=== PATIENT | female | born 1935 | race Caucasian/White ===

== ENCOUNTER 2016-05-03 03:42 | Emergency (ER) | payer OTHER ==
[~2016-05-03] VITALS: Ht 165.1 cm; Wt 82.7 kg
[~2016-05-03 03:42] MED LIST: CIPR500T4 PO; COLY4000S PO; DOXY100T PO; ERYT250T13 OR
[2016-05-03 03:44] VITALS: BP 201/109; PULSE 77; RESP 20; TEMP 97.9; O2SAT 96
--- NOTE | 2016-05-03 03:54 | PD ---
HPI Chief Complaint: Pain: Acute or Chronic Time Seen by Provider: 03:44 Travel History International Travel<30 days: No Contact w/Intl Traveler<30days: No Traveled to known affect area: No History of Present Illness HPI The patient is 80 years old and arrives by EMS. She has a history of coronary artery disease with a CABG and triple bypass. She has for the past day or so developed pain in the region of the right leg is quite severe, 10 over 10 according to the patient. History is provided by the son primarily however offering story of leg pain for about 2 days or so. There has been no traumatic injury. Onset was gradual. There is no apparent exacerbating or mitigating factor. PFSH Past Medical History Cardiovascular Problems: Yes (TRIPLE BYPASS ) Coronary Artery Disease: Yes Past Surgical History Appendectomy: Yes Cardiac Surgery: Yes (CABG X 3, CARDIAC CATH) Hysterectomy: Yes Tonsillectomy: Yes Other Surgery: Yes (CATARACT SX, THYROID SX, FIBROID CYST RT BREAST) Social History Alcohol Use: No Tobacco Use: No Substance Use: No Allergies-Medications (Allergen,Severity, Reaction): Coded Allergies: Claritin-D (Verified Allergy, Severe, 12/24/15) Macrobid (Verified Allergy, Severe, 12/24/15) Penicillin (Verified Allergy, Severe, 12/24/15) Sulfa (Verified Allergy, Severe, 12/24/15) Talwin (Verified Allergy, Severe, 12/24/15) Tequin (Verified Allergy, Severe, 12/24/15) Xanax (Verified Allergy, Severe, 12/24/15) Zoloft (Verified Allergy, Severe, 12/24/15) Motrin (Verified Allergy, Unknown, H/A, 12/24/15) Uncoded Allergies: BACTRIM (Allergy, Severe, 08/15/11) FISH (Allergy, Severe, 08/15/11) TOLECTIN (Allergy, Unknown, 12/24/15) Reported Meds & Prescriptions Reported Meds & Active Scripts Active Lortab (Hydrocodone-Acetaminophen) 5-325 Mg Tab 1 Tab PO Q8HR PRN Review of Systems Except as stated in HPI: all other systems reviewed are Neg Physical Exam Narrative GENERAL: 80 yo F, WNWD, mild distress SKIN: Warm and dry. HEAD: Atraumatic. Normocephalic. EYES: Pupils equal and round. No scleral icterus. No injection or drainage. ENT: No nasal bleeding or discharge. Mucous membranes pink and moist. NECK: Trachea midline. No JVD. CARDIOVASCULAR: Regular rate and rhythm. RESPIRATORY: No accessory muscle use. Clear to auscultation. Breath sounds equal bilaterally. GASTROINTESTINAL: The abdomen is soft and nontender. There is no mass/hernia that is appreciable on exam. No suprapubic tenderness. MUSCULOSKELETAL: R thigh appears normal and is without tenderness. no focal spinal tenderness. no tenderness overlying iliac crest. NEUROLOGICAL: Awake and alert. No obvious cranial nerve deficits. Motor grossly within normal limits. Five out of 5 muscle strength in the arms and legs. Normal speech. PSYCHIATRIC: Appropriate mood and affect; insight and judgment normal. Data Data Last Documented VS Vital Signs Date Time Temp Pulse Resp B/P Pulse Ox O2 Delivery O2 Flow Rate FiO2 05/03/16 04:51 94 Nasal Cannula 2 05/03/16 03:44 97.9 77 20 201/109 Orders Complete Blood Count With Diff (05/03/16 03:54) Urinalysis - C+S If Indicated (05/03/16 03:54) Femur (Ap & Lat/2vws) (05/03/16 03:54) Hip, Uni(Ap&Lat) W Ap Pelvis (05/03/16 03:54) Iv Access Insert/Monitor (05/03/16 03:54) Oximetry (05/03/16 03:54) Ecg Monitoring (05/03/16 03:54) Ondansetron Inj (Zofran Inj) (05/03/16 04:00) Sodium Chloride 0.9% Flush (Ns Flush) (05/03/16 04:00) Hydromorphone Pf Inj (Dilaudid Pf Inj) (05/03/16 04:00) Basic Metabolic Panel (Bmp) (05/03/16 03:54) Cath For Specimen (05/03/16 04:37) Urine Culture (05/03/16 06:15) Labs Laboratory Tests Test 05/03/16 05/03/16 03:55 06:15 White Blood Count 5.9 TH/MM3 Red Blood Count 4.65 MIL/MM3 Hemoglobin 14.2 GM/DL Hematocrit 42.2 % Mean Corpuscular Volume 90.7 FL Mean Corpuscular Hemoglobin 30.5 PG Mean Corpuscular Hemoglobin 33.7 % Concent Red Cell Distribution Width 14.4 % Platelet Count 163 TH/MM3 Mean Platelet Volume 8.7 FL Neutrophils (%) (Auto) 73.5 % Lymphocytes (%) (Auto) 16.1 % Monocytes (%) (Auto) 6.7 % Eosinophils (%) (Auto) 2.8 % Basophils (%) (Auto) 0.9 % Neutrophils # (Auto) 4.3 TH/MM3 Lymphocytes # (Auto) 1.0 TH/MM3 Monocytes # (Auto) 0.4 TH/MM3 Eosinophils # (Auto) 0.2 TH/MM3 Basophils # (Auto) 0.1 TH/MM3 CBC Comment DIFF FINAL Differential Comment Sodium Level 137 MEQ/L Potassium Level 3.8 MEQ/L Chloride Level 102 MEQ/L Carbon Dioxide Level 25.6 MEQ/L Anion Gap 9 MEQ/L Blood Urea Nitrogen 11 MG/DL Creatinine 0.84 MG/DL Estimat Glomerular Filtration 65 ML/MIN Rate Random Glucose 114 MG/DL Calcium Level 8.9 MG/DL Urine Color YELLOW Urine Turbidity HAZY Urine pH 7.0 Urine Specific [place] 1.021 Urine Protein TRACE mg/dL Urine Glucose (UA) NEG mg/dL Urine Ketones 10 mg/dL Urine Occult Blood NEG Urine Nitrite POS Urine Bilirubin NEG Urine Urobilinogen LESS THAN 2.0 MG/DL Urine Leukocyte Esterase NEG Urine RBC 2 /hpf Urine WBC 5 /hpf Urine Squamous Epithelial 12 /hpf Cells Urine Amorphous Sediment RARE Urine Bacteria MANY /hpf Urine Hyaline Casts 1 /lpf Urine Mucus FEW /lpf Microscopic Urinalysis Comment CATH-CULTURE IND [facility] Medical Decision Making Medical Screen Exam Complete: Yes Emergency Medical Condition: Yes Medical Record Reviewed: Yes Differential Diagnosis Constipation, Gastritis, Acute Cholecystitis, Biliary Colic, Pancreatitis, KUMARI , Hepatitis, Bowel Obstruction, Cystitis, Mesenteric Ischemia, AAA, Appendicitis , Renal Stone/Hydronephrosis, GERD, perforated viscous Narrative Course CBC & BMP Diagram 05/03/16 03:55 UA: UTI present The patient is resting comfortably and feels better, is alert and in no distress. The patients results and examination findings were discussed. The repeat examination is unremarkable and benign. The history, exam, diagnostic testing, and current condition do not suggest any significant pathology to warrant further testing, continued ED treatment, admission, or surgical evaluation at this point. The vital signs have been stable. The patient does not have uncontrollable pain, intractable vomiting, or other significant symptoms. The patient's condition is stable and appropriate for discharge. The patient will pursue further outpatient evaluation with a primary care physician or other designated or consulting physician as indicated in the discharge instructions. The patient expressed understanding and was agreeable with this plan. Diagnosis Primary Impression: Right hip pain Additional Impression: Cystitis Referrals: Shannan Tucker MDo,Esperanza HUTCHINSON Additional Instructions: You have a choice when it comes to health care, and we are glad that you chose [facility]. Hopefully, we have met your expectations on today's visit. You are welcome to return to [facility] at any time, as we are committed to meeting the health care needs of our community. Med/Other Pt SpecificInfo: Prescription(s) given Scripts Cefuroxime (Ceftin)500 Mg Klx179 Mg PO BID 5 Days Ref 0 Prov:Jesse Butler MD 05/03/16 Hydrocodone-Acetaminophen (Lortab)5-325 Mg Tab1 Tab PO Q8HR PRN (PAIN SCALE 6 TO 10) #20 TAB Ref 0 Prov:Jesse Butler MD 05/03/16 Disposition: 01 DISCHARGE HOME Condition: Stable Jesse Butler MD May 03, 2016 03:54
[2016-05-03] MEDS ORDERED: HYDROmorphone HCL PF 1 MG/ML VIAL IVS ONE (04:00)
[2016-05-03] MEDS ORDERED: ONDANSETRON HCL 4 MG/2 ML VIAL IVP ONE (04:00)
[2016-05-03 04:12] LABS: AUTOMATED NEUTROPHIL # 4.3 TH/MM3 (1.8-7.7); BASOPHIL # 0.1 TH/MM3 (0-0.2); BASOPHIL % 0.9 % (0.0-2.0); EOSINOPHIL # 0.2 TH/MM3 (0-0.4); EOSINOPHIL % 2.8 % (0.0-4.0); HEMATOCRIT 42.2 % (35.0-46.0); HEMO FLAGS DIFF FINAL; LYMPH % 16.1 % (9.0-44.0); MEAN CELL VOLUME 90.7 FL (80.0-100.0); MEAN CORPUSCULAR HEMOGLOBIN 30.5 PG (27.0-34.0); MEAN CORPUSCULAR HGB CONC 33.7 % (32.0-36.0); MONO % 6.7 % (0.0-8.0); NEUT % 73.5 % (16.0-70.0); PLATELET COUNT 163 TH/MM3 (150-450); RED BLOOD COUNT 4.65 MIL/MM3 (4.00-5.30); RED CELL DISTRIBUTION WIDTH 14.4 % (11.6-17.2); WHITE BLOOD COUNT 5.9 TH/MM3 (4.0-11.0)
[2016-05-03] MEDS: SODIUM CHLORIDE 0.9% FLUSH 5 ML FLUSH IVF PRN ×2 (04:21→09:19)
[2016-05-03 04:29] LABS: BICARBONATE 25.6 MEQ/L (21.0-32.0); POTASSIUM 3.8 MEQ/L (3.5-5.1)
[2016-05-03 04:51] VITALS: O2SAT 94
--- NOTE | 2016-05-03 05:06 | RADRPT ---
EXAM DATE/TIME: 05/03/2016 04:06 [facility] COMPARISON: No previous studies available for comparison. INDICATIONS : Right leg pain from unknown injury. MEDICAL HISTORY : None. SURGICAL HISTORY : CABG. ENCOUNTER: Initial ACUITY: 2 days PAIN SCORE: 8/10 LOCATION: Right femur FINDINGS: Two view examination of the right femur demonstrates no evidence of fracture or dislocation. Bony mi neralization is normal. The soft tissue structures are intact. There are mild degenerative changes o f the joint. CONCLUSION: No fracture or joint dislocation. Mild degenerative changes at the hip joint. Teddy Uriarte MD on May 03, 2016 at 5:04 Board Certified Radiologist. This report was verified electronically.
--- NOTE | 2016-05-03 05:07 | RADRPT ---
EXAM DATE/TIME: 05/03/2016 04:06 [facility] COMPARISON: No previous studies available for comparison. INDICATIONS : Right hip pain from unknown injury. MEDICAL HISTORY : None. SURGICAL HISTORY : CABG. ENCOUNTER: Initial ACUITY: 2 days PAIN SCORE: 8/10 LOCATION: Right hip FINDINGS: Examination of the right hip was performed with AP Pelvis. The primary and secondary trabecular obed shanice of the femoral neck is intact. The hip joint is of normal width without significant sclerosis or bony hypertrophy. There are mild degenerative changes of both hip joints. Multiple calcified phlebol iths are seen in the pelvis. The acetabulum is grossly intact. CONCLUSION: Unremarkable exam for patient's age. Teddy Uriarte MD on May 03, 2016 at 5:04 Board Certified Radiologist. This report was verified electronically.
[2016-05-03 07:00] VITALS: BP 145/69; PULSE 68; RESP 18; O2SAT 98
[2016-05-03] MEDS ORDERED: HYDR-3533 PO (07:03)
[2016-05-03 07:05] LABS: BACTERIA, URINE MANY /hpf; BLOOD, URINE NEG (NEG); GLUCOSE,URINE NEG (NEG); HYALINE CAST, URINE 1 /lpf (RARE); KETONE, URINE 10 mg/dL (NEG); MUCUS URINE FEW /lpf (OCC); SQUAMOUS EPITHELIAL CELL URINE 12 /hpf (0-5); URINE COLOR YELLOW (YELLW/STRAW)
[2016-05-03 07:08] LABS: COMMENT (UR) CATH-CULTURE IND; CULTURE IF INDICATED CATH CULTURE IND; NITRITE,URINE POS (NEG)
[2016-05-03] MEDS ORDERED: CEFT500T3 PO (07:14)
[2016-05-03] MEDS ORDERED: CEFUROXIME AXETIL 500 MG TAB PO ONE (07:30)
[2016-05-03 09:45] VITALS: BP 148/68; PULSE 56; RESP 18; O2SAT 95
== END 2016-05-03 10:13 | disposition home or self-care (01) ==
LOC: NEPE 03:42
DX: M25.551 Pain in right hip (principal); N30.90 Cystitis, unspecified without hematuria; B96.20 Unspecified Escherichia coli [E. coli] as the cause of diseases classified elsewhere; I25.10 Atherosclerotic heart disease of native coronary artery without angina pectoris; Z95.1 Presence of aortocoronary bypass graft
CPT/HCPCS: 73502; 73552; 80048; 81001; 85025; 87077; 87086; 87186; 96374; 96375; 99284; J1170; J2405

== ENCOUNTER 2016-05-05 21:29 | Observation (INO) | payer OTHER ==
[~2016-05-05] VITALS: Ht 165.1 cm; Wt 82.0 kg
[~2016-05-05 21:29] MED LIST changes: +CEFT500T3 PO; -CIPR500T4 PO; -COLY4000S PO; -DOXY100T PO; -ERYT250T13 OR; +HYDR-3533 PO
[2016-05-05 21:32] VITALS: BP 211/94; PULSE 74; RESP 22; O2SAT 92
[2016-05-05 21:44] VITALS: TEMP 98.1
[2016-05-05] MEDS ORDERED: MORPHINE SULFATE 4 MG/ML INJ IV PUSH ONE (22:45)
[2016-05-05] MEDS ORDERED: SODIUM CHLORID 0.9% 500 ML INJ 500 ML IV ONE (22:45)
--- NOTE | 2016-05-05 22:48 | PD ---
HPI Chief Complaint: Pain: Acute or Chronic Time Seen by Provider: 22:10 Travel History International Travel<30 days: No Contact w/Intl Traveler<30days: No Traveled to known affect area: No History of Present Illness HPI And 80-year-old woman who presents to the emergency department complaining of right hip and leg pain. States his symptoms been ongoing for about a week or so now. She was receiving the emergency department had x-rays that were negative, and UA to suggest some pyuria so she was treated with pain medicine and antibiotics. She states she's not improved. She is chronic swelling in the leg from her previous vein harvesting for CABG. She states she's had intermittent mild pains and hip but this is been progressively more severe. She walks with a walker at home. States the pain is excruciating she's not been able to walk. She had trouble constipation and obstipation in the past. She states that she had to strain to go to the bathroom today. History Past Medical History Narrative Medical CAD, history of CABG Tetanus Vaccination: > 5 Years Influenza Vaccination: No : 6 Para: 4 Social History Alcohol Use: No Tobacco Use: No Allergies-Medications (Allergen,Severity, Reaction): Coded Allergies: Claritin-D (Verified Allergy, Severe, 05/05/16) Macrobid (Verified Allergy, Severe, 05/05/16) Penicillin (Verified Allergy, Severe, 05/05/16) Sulfa (Verified Allergy, Severe, 05/05/16) Talwin (Verified Allergy, Severe, 05/05/16) Tequin (Verified Allergy, Severe, 05/05/16) Xanax (Verified Allergy, Severe, 05/05/16) Zoloft (Verified Allergy, Severe, 05/05/16) Motrin (Verified Allergy, Unknown, H/A, 05/05/16) Uncoded Allergies: BACTRIM (Allergy, Severe, 08/15/11) FISH (Allergy, Severe, 08/15/11) TOLECTIN (Allergy, Unknown, 12/24/15) Reported Meds & Prescriptions Reported Meds & Active Scripts Active Ceftin (Cefuroxime Axetil) 500 Mg Tab 500 Mg PO BID 5 Days Lortab (Hydrocodone-Acetaminophen) 5-325 Mg Tab 1 Tab PO Q8HR PRN Review of Systems Except as stated in HPI: all other systems reviewed are Neg Physical Exam Narrative GENERAL: [Obese 80-year-old woman, writhing in pain. SKIN: Warm and dry. HEAD: Atraumatic. Normocephalic. EYES: Pupils equal and round. No scleral icterus. No injection or drainage. ENT: No nasal bleeding or discharge. Mucous membranes pink and moist. NECK: Trachea midline. No JVD. CARDIOVASCULAR: Regular rate and rhythm. No murmur appreciated. RESPIRATORY: No accessory muscle use. Clear to auscultation. Breath sounds equal bilaterally. GASTROINTESTINAL: Abdomen is obese and soft. No significant tenderness. MUSCULOSKELETAL: No obvious deformities. No edema. Right leg is warm and erythematous. There is a lot of chronic skin changes and scaling. Pulses are difficult to palpate. Left leg has some mild edema but without the chronic skin changes compared to the right. NEUROLOGICAL: Awake and alert. No obvious cranial nerve deficits. Motor grossly within normal limits. Normal speech. Data Data Last Documented VS Vital Signs Date Time Temp Pulse Resp B/P Pulse Ox O2 Delivery O2 Flow Rate FiO2 05/05/16 23:07 70 20 167/76 93 Room Air 05/05/16 21:44 98.1 Orders Sodium Chlorid 0.9% 500 Ml Inj (Ns 500 M (05/05/16 22:45) Morphine Inj (Morphine Inj) (05/05/16 22:45) Complete Blood Count With Diff (05/05/16 22:33) Comprehensive Metabolic Panel (05/05/16 22:33) Iv Access Insert/Monitor (05/05/16 22:33) Us Leg Venous Doppler (05/05/16 ) Ct Hip W/O Contrast (05/06/16 ) Ct Abd/Pel W/O Iv Contrast (05/06/16 ) Morphine Inj (Morphine Inj) (05/06/16 01:45) Labs Laboratory Tests Test 05/05/16 23:08 White Blood Count 5.8 TH/MM3 Red Blood Count 4.63 MIL/MM3 Hemoglobin 14.3 GM/DL Hematocrit 41.9 % Mean Corpuscular Volume 90.5 FL Mean Corpuscular Hemoglobin 30.9 PG Mean Corpuscular Hemoglobin 34.2 % Concent Red Cell Distribution Width 14.5 % Platelet Count 168 TH/MM3 Mean Platelet Volume 8.4 FL Neutrophils (%) (Auto) 77.4 % Lymphocytes (%) (Auto) 12.4 % Monocytes (%) (Auto) 7.9 % Eosinophils (%) (Auto) 1.4 % Basophils (%) (Auto) 0.9 % Neutrophils # (Auto) 4.5 TH/MM3 Lymphocytes # (Auto) 0.7 TH/MM3 Monocytes # (Auto) 0.5 TH/MM3 Eosinophils # (Auto) 0.1 TH/MM3 Basophils # (Auto) 0.1 TH/MM3 CBC Comment DIFF FINAL Differential Comment Sodium Level 137 MEQ/L Potassium Level 3.8 MEQ/L Chloride Level 102 MEQ/L Carbon Dioxide Level 26.3 MEQ/L Anion Gap 9 MEQ/L Blood Urea Nitrogen 16 MG/DL Creatinine 0.88 MG/DL Estimat Glomerular Filtration 62 ML/MIN Rate Random Glucose 107 MG/DL Calcium Level 8.4 MG/DL Total Bilirubin 0.7 MG/DL Aspartate Amino Transf 37 U/L (AST/SGOT) Alanine Aminotransferase 24 U/L (ALT/SGPT) Alkaline Phosphatase 67 U/L Total Protein 7.7 GM/DL Albumin 3.9 GM/DL [facility] Medical Decision Making Medical Screen Exam Complete: Yes Emergency Medical Condition: Yes Interpretation(s) LABS: CBC unremarkable CMP unremarkable CT abdomen and pelvis: Diverticulosis. Out of sclerotic disease. Bilateral complex cystic and solid appearing adnexal masses felt to be ovarian in etiology. CT right hip: Osteoarthritis no fracture. Right lower extremity ultrasound negative for DVT. Differential Diagnosis Hip pain, strain or sprain, obstipation, mass, shingles, other Narrative Course Medical decision making 80-year-old woman with worsening right hip pain. Etiologies unclear. It seems to be musculoskeletal worse with any kind of movement or strain. She denies having had previous similar problems. We'll get CT of the right hip. Symptoms could be related to right lower quadrant pain. She's had a lot of trouble constipation. I did a rectal exam and it doesn't show any evidence of obstipation. We'll check CT the abdomen. There is a lot of chronic edema in the leg and she could have a worsening DVT. There is warmth and redness to the leg. We'll check ultrasound. Reassess. FINAL: Initial workup unremarkable. Patient with persistent intractable right hip pain of unknown etiology. Patient admitted for further evaluation. Diagnosis Primary Impression: Right hip pain Juan Ramon Hughes MD May 05, 2016:48
[2016-05-05 23:07] VITALS: BP 167/76; PULSE 70; RESP 20; O2SAT 93
[2016-05-05 23:18] LABS: AUTOMATED NEUTROPHIL # 4.5 TH/MM3 (1.8-7.7); BASOPHIL # 0.1 TH/MM3 (0-0.2); BASOPHIL % 0.9 % (0.0-2.0); EOSINOPHIL # 0.1 TH/MM3 (0-0.4); EOSINOPHIL % 1.4 % (0.0-4.0); HEMATOCRIT 41.9 % (35.0-46.0); HEMO FLAGS DIFF FINAL; LYMPH % 12.4 % (9.0-44.0); LYMPHOCYTE # 0.7 TH/MM3 (1.0-4.8); MEAN CELL VOLUME 90.5 FL (80.0-100.0); MEAN CORPUSCULAR HEMOGLOBIN 30.9 PG (27.0-34.0); MEAN CORPUSCULAR HGB CONC 34.2 % (32.0-36.0); MONO % 7.9 % (0.0-8.0); NEUT % 77.4 % (16.0-70.0); PLATELET COUNT 168 TH/MM3 (150-450); RED BLOOD COUNT 4.63 MIL/MM3 (4.00-5.30); RED CELL DISTRIBUTION WIDTH 14.5 % (11.6-17.2); WHITE BLOOD COUNT 5.8 TH/MM3 (4.0-11.0)
[2016-05-05 23:44] LABS: ALKALINE PHOSPHATASE 67 U/L (45-117); ALT (GPT) 24 U/L (10-53); ANION GAP 9 MEQ/L (5-15); AST (GOT) 37 U/L (15-37); BICARBONATE 26.3 MEQ/L (21.0-32.0); BLOOD UREA NITROGEN 16 MG/DL (7-18); CHLORIDE 102 MEQ/L (98-107); GLOMERULAR FILTRATION RATE 62 ML/MIN (>89); POTASSIUM 3.8 MEQ/L (3.5-5.1); SODIUM (NA) 137 MEQ/L (136-145); TOTAL BILIRUBIN ADULT 0.7 MG/DL (0.2-1.0)
[2016-05-06] VITALS (13 sets, daily range): BP systolic 133–182; BP diastolic 64–82; PULSE 53–73; RESP 18–20; TEMP 97–97.4; O2SAT 92–98
--- NOTE | 2016-05-06 00:07 | RADRPT ---
EXAM DATE/TIME: 05/05/2016 23:39 [facility] COMPARISON: No previous studies available for comparison. INDICATIONS : Right leg pain and edema. MEDICAL HISTORY : Coronary artery disease. SURGICAL HISTORY : Tonsillectomy. CABG Hysterectomy. Appendectomy. Cardiac cath. Cataract surgery. Thyroid surgery. Rig ht breast fibroid cyst removal. ENCOUNTER: Initial ACUITY: 4 - 6 days PAIN SCORE: 10/10 LOCATION: Right leg. TECHNIQUE: Venous ultrasound of the leg was performed from the inguinal ligament to the proximal calf. Real-jhonny e, color Doppler and spectral tracing, compression and augmentation techniques were used. FINDINGS: There is normal compressibility of the deep venous system from the inguinal region to the proximal ca lf. No echogenic clot is seen in the lumen of the common femoral, femoral, popliteal, and posterior tibial veins. There is a normal response of the venous system to proximal and distal augmentation an d respiration. CONCLUSION: Normal examination. Aaron Dorsey MD on May 06, 2016 at 0:05 Board Certified Radiologist. This report was verified electronically.
--- NOTE | 2016-05-06 00:48 | RADRPT ---
EXAM DATE/TIME: 05/06/2016 00:19 [facility] COMPARISON: No previous studies available for comparison. INDICATIONS : Diffuse abdominal pain. ORAL CONTRAST: No oral contrast ingested. RADIATION DOSE: 22.17 CTDIvol (mGy) MEDICAL HISTORY : None SURGICAL HISTORY : Hysterectomy. Appendectomy. ENCOUNTER: Initial ACUITY: 1 day PAIN SCALE: 6/10 LOCATION: [facility] TECHNIQUE: Volumetric scanning of the abdomen and pelvis was performed. Using automated exposure control and ad justment of the mA and/or kV according to patient size, radiation dose was kept as low as reasonably achievable to obtain optimal diagnostic quality images. FINDINGS: Small hiatal hernia. Liver, gallbladder, spleen, stomach, pancreas, right adrenal gland, bilater al kidneys are normal in appearance. There is mild enlargement of left adrenal gland with -3.4 Hounsf ield units characteristic of a small adrenal adenoma measuring 1.4 cm. Diffuse atherosclerotic calcif ications of the aorta and iliac vessels are noted. The urinary bladder is unremarkable. There is dive rticulosis of the sigmoid and descending colon without evidence of diverticulitis. There are bilatera l complex cystic and solid appearing masses within the pelvis including an 11 x 7 cm hypodense mass i n the left adnexal region, and a complex cystic and solid appearing mass right lower quadrant measuri ng 10.1 x 11.1 cm in AP transverse dimension. Along the lateral superior aspect of this mass is a cir cumscribed 8.8 x 7.8 cm cystic mass felt to be associated with this lesion. Bilateral ovarian masses are suspected. There are degenerative changes of the spine noted. Mild atelectatic changes at the payam g bases are noted. CONCLUSION: 1. Diverticulosis without diverticulitis. 2. Extensive atherosclerotic disease. 3. Bilateral complex cystic and solid appearing adnexal masses felt to be ovarian in etiology. Aaron Dorsey MD on May 06, 2016 at 0:44 Board Certified Radiologist. This report was verified electronically.
--- NOTE | 2016-05-06 00:58 | RADRPT ---
EXAM DATE/TIME: 05/06/2016 00:19 [facility] COMPARISON: CT ABDOMEN & PELVIS W/O CONTRAST, May 06, 2016, 0:19. INDICATIONS : Right hip pain. RADIATION DOSE: ; Reconstructed from previous dataset MEDICAL HISTORY : None SURGICAL HISTORY : Hysterectomy. Appendectomy. ENCOUNTER: Initial ACUITY: 1 day PAIN SCALE: 8/10 LOCATION: Right hip TECHNIQUE: Volumetric scanning of the hip was performed. Using automated exposure control and adjustment of the mA and/or kV according to patient size, radiation dose was kept as low as reasonably achievable to o btain optimal diagnostic quality images. FINDINGS: There are bilateral complex cystic and solid appearing adnexal masses bilaterally. There is moderate osteoarthritis of the hip with acetabular osteophyte formation and subchondral cystic changes of the acetabulum. Moderate joint space narrowing is seen. There is mild subchondral sclerosis. CONCLUSION: 1. Osteoarthritis. No fractures. Aaron Dorsey MD on May 06, 2016 at 0:56 Board Certified Radiologist. This report was verified electronically.
[2016-05-06] MEDS ORDERED: MORPHINE SULFATE 4 MG/ML INJ IV PUSH ONE (01:45)
[2016-05-06] MEDS ORDERED: NALOXONE HCL 0.4 MG/ML AMP IV PRN (01:45)
[2016-05-06] MEDS: cefTRIAXone INJ 1,000 MG in SODIUM CHLORIDE 0.9% INJ 100 ML IV SCH (02:11)
--- NOTE | 2016-05-06 02:59 | HHI.HP ---
[facility]ician No Primary Care Physician Admission Diagnosis intractable right hip pain Diagnoses: Chief Complaint: hip pain Travel History International Travel<30 Days: No Contact w/Intl Traveler <30 Da: No Traveled to Known Affected Are: No History of Present Illness History from patient, ER physician communication, and review of medical records. Patient's son was also at the bedside at the time of my exam. Patient herself is somewhat of a poor historian. He states that he came to the hospital because he is having this and Pain on her right hip. Son but the bedside stated patient has been having chronic right lower extremity pain but she was usually able to ambulate with a walker at home and do most of her activities of daily living without much assistance. However in the past 4 days, patient was having severe right hip pain which started from the knees and clue to her right lower upper lobe lower quadrant abdomen and radiates to her back. She denies falling down. Denies loss of consciousness. Patient denies any burning or pain on urination. She initially came to emergency room about a day ago with similar complaints of right hip pain. At that time during was sent which revealed Escherichia coli UTI. She was actually discharged home on antibiotics cephalosporin for which this bug was sensitive to. In the emergency room, patient's imaging workup was essentially negative. Patient's son at the bedside stated that patient was also tracking her feet when she was having trouble ambulating. Again this is only in the past 4 days. Review of Systems Other 12 point review of system is done and negative apart from what is mentioned in HPI Past Family Social History Past Medical History Hypertension Atrial fibrillation Obesity Chronic lower extremity lymphedema Chronic skin changes Past Surgical History Cholecystectomy Reported Medications Both patient and son stated that she is not taking any medications. Not even a baby aspirin. Allergies: Coded Allergies: Claritin-D (Verified Allergy, Severe, 05/05/16) Macrobid (Verified Allergy, Severe, 05/05/16) Penicillin (Verified Allergy, Severe, 05/05/16) Sulfa (Verified Allergy, Severe, 05/05/16) Talwin (Verified Allergy, Severe, 05/05/16) Tequin (Verified Allergy, Severe, 05/05/16) Xanax (Verified Allergy, Severe, 05/05/16) Zoloft (Verified Allergy, Severe, 05/05/16) Motrin (Verified Allergy, Unknown, H/A, 05/05/16) Uncoded Allergies: BACTRIM (Allergy, Severe, 08/15/11) FISH (Allergy, Severe, 08/15/11) TOLECTIN (Allergy, Unknown, 12/24/15) Family History None that she knows of Social History Denies smoking/alcohol abuse or drug abuse. Physical Exam Vital Signs Vital Signs Date Time Temp Pulse Resp B/P Pulse Ox O2 Delivery O2 Flow Rate FiO2 05/06/16 02:19 71 20 149/65 92 Room Air 05/05/16 23:07 70 20 167/76 93 Room Air 05/05/16 21:44 98.1 05/05/16 21:32 74 22 211/94 92 Physical Exam GENERAL: This is a well-nourished, well-developed patient, in no apparent distress. SKIN: Bilateral look for extremity chronic skin changes almost ends elephantitis HEAD: Atraumatic. Normocephalic. No temporal or scalp tenderness. EYES: No scleral icterus. No injection or drainage. ENT: Nose without bleeding, purulent drainage or septal hematoma. . Airway patent. NECK: Trachea midline. No JVD Supple, nontender, no meningeal signs. CARDIOVASCULAR: Regular rate and rhythm without murmurs, gallops, or rubs. RESPIRATORY: Clear to auscultation. Breath sounds equal bilaterally. No wheezes , rales, or rhonchi. GASTROINTESTINAL: Abdomen soft, tenderness at right lower quadrant area, nondistended. No guarding. MUSCULOSKELETAL: Extremities without clubbing, cyanosis, or edema. NEUROLOGICAL: Awake and alert. Motor and sensory grossly within normal limits. Normal speech. Laboratory Laboratory Tests Test 05/05/16 23:08 White Blood Count 5.8 Red Blood Count 4.63 Hemoglobin 14.3 Hematocrit 41.9 Mean Corpuscular Volume 90.5 Mean Corpuscular Hemoglobin 30.9 Mean Corpuscular Hemoglobin 34.2 Concent Red Cell Distribution Width 14.5 Platelet Count 168 Mean Platelet Volume 8.4 Neutrophils (%) (Auto) 77.4 Lymphocytes (%) (Auto) 12.4 Monocytes (%) (Auto) 7.9 Eosinophils (%) (Auto) 1.4 Basophils (%) (Auto) 0.9 Neutrophils # (Auto) 4.5 Lymphocytes # (Auto) 0.7 Monocytes # (Auto) 0.5 Eosinophils # (Auto) 0.1 Basophils # (Auto) 0.1 CBC Comment DIFF FINAL Differential Comment Sodium Level 137 Potassium Level 3.8 Chloride Level 102 Carbon Dioxide Level 26.3 Anion Gap 9 Blood Urea Nitrogen 16 Creatinine 0.88 Estimat Glomerular Filtration 62 Rate Random Glucose 107 Calcium Level 8.4 Total Bilirubin 0.7 Aspartate Amino Transf 37 (AST/SGOT) Alanine Aminotransferase 24 (ALT/SGPT) Alkaline Phosphatase 67 Total Protein 7.7 Albumin 3.9 Result Diagram: 05/05/16230705/05/162307 Imaging Date Time Temp Pulse Resp B/P Pulse Ox O2 Delivery O2 Flow Rate FiO2 05/06/16 05:55 72 05/06/16 05:47 97.4 73 20 169/67 96 05/06/16 04:00 72 20 174/73 95 Room Air 05/06/16 02:19 71 20 149/65 92 Room Air 05/05/16 23:07 70 20 167/76 93 Room Air 05/05/16 21:44 98.1 05/05/16 21:32 74 22 211/94 92 Assessment and Plan Assessment and Plan Impression: Severe right lower extremity, right lower quadrant abdomen, and right back pain etiology unclear. Suspect chronic obesity and lymphedema related. Also possible that UTI/pyelonephritis is contributing to this pain. UTIEscherichia coli 2 days ago Plan: Pain control. Physical therapy consult. Resume home meds. Continue Rocephin 1 g IV every 12 hours for UTI. Aleksandar Massey MD May 06, 2016 02:59 Aleksandar Massey MD May 06, 2016 02:59
--- NOTE | 2016-05-06 03:27 | RADRPT ---
EXAM DATE/TIME: 05/06/2016 03:16 [place] COMPARISON: No previous studies available for comparison. INDICATIONS : Evaluate for cva, right lower extremity weakness and pain. RADIATION DOSE: 46.28 CTDIvol (mGy) MEDICAL HISTORY : None SURGICAL HISTORY : Tonsillectomy. cataract surgery ENCOUNTER: Initial ACUITY: 1 day PAIN SCALE: 8/10 LOCATION: cranial TECHNIQUE: Multiple contiguous axial images were obtained of the head. Using automated exposure control and adj ustment of the mA and/or kV according to patient size, radiation dose was kept as low as reasonably a chievable to obtain optimal diagnostic quality images. FINDINGS: No evidence of cranial hemorrhage or mass. 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 No fractures are seen. No signs of acute infarct. CONCLUSION: No acute disease. Aaron Dorsey MD on May 06, 2016 at 3:24 Board Certified Radiologist. This report was verified electronically.
[2016-05-06] MEDS: SODIUM CHLORIDE 0.9% FLUSH 5 ML FLUSH FLUSH PRN (06:22)
[2016-05-06] MEDS: MORPHINE SULFATE 4 MG/ML INJ IV PUSH PRN (06:22)
[2016-05-06] MEDS: SODIUM CHLORIDE 0.9% FLUSH 5 ML FLUSH FLUSH SCH ×2 (09:00→22:18)
--- NOTE | 2016-05-06 10:43 | HHI.PR ---
Subjective Remarks Follow-up for right hip pain. Patient seen with son at bedside. Patient locates the pain to the right hip and thigh. States it has been going on for the past 4 days causing inability to ambulate. The patient was able to ambulate some around her house with a walker at baseline prior. The patient is noncompliant with medical therapy and refuses medications for BP, does not have a PCP for follow-up with Drs., takes no meds at home. She adamantly refuses rehabilitation placement. She is agreeable for home health physical therapy. Seen after PT evaluation today, patient is still unable to move out of bed secondary to pain. She states the morphine helps. She states the [place] she was given previously in the emergency room did not help. She denies any dysuria , but states she has been urinating more than normal. She's been dealing with constipation. Objective Vitals Vital Signs Date Time Temp Pulse Resp B/P Pulse Ox O2 Delivery O2 Flow Rate FiO2 05/06/16 09:18 97.3 68 18 173/80 95 05/06/16 05:55 72 05/06/16 05:47 97.4 73 20 169/67 96 05/06/16 04:00 72 20 174/73 95 Room Air 05/06/16 02:19 71 20 149/65 92 Room Air 05/05/16 23:07 70 20 167/76 93 Room Air 05/05/16 21:44 98.1 05/05/16 21:32 74 22 211/94 92 Result Diagram: 05/05/16230705/05/162307 Imaging Last Impressions Lower Extremity CT 05/06/16 0000 Signed Impressions: Service Date/Time: Friday, May 06, 2016 00:19 - CONCLUSION: 1. Osteoarthritis. No fractures. Aaron Dorsey MD Head CT 05/06/16 0000 Signed Impressions: Service Date/Time: Friday, May 06, 2016 03:16 - CONCLUSION: No acute disease. Aaron Dorsey MD Abdomen/Pelvis CT 05/06/16 0000 Signed Impressions: Service Date/Time: Friday, May 06, 2016 00:19 - CONCLUSION: 1. Diverticulosis without diverticulitis. 2. Extensive atherosclerotic disease. 3. Bilateral complex cystic and solid appearing adnexal masses felt to be ovarian in etiology. Aaron Dorsey MD Lower Extremity Ultrasound 05/05/16 0000 Signed Impressions: Service Date/Time: April 23:39 - CONCLUSION: Normal examination. Aaron Dorsey MD Objective Remarks GENERAL: Well-developed well-nourished. In no acute distress. Extremely hard of hearing. SKIN: Warm and dry. Venous stasis changes of the lower extremities. HEENT: Normocephalic. Pupils equal and round. Mucous membranes pink and moist. CARDIOVASCULAR: Regular rate and rhythm. No murmur appreciated. RESPIRATORY: No accessory muscle use. Clear to auscultation. Breath sounds equal bilaterally. GASTROINTESTINAL: Abdomen soft, non-tender, nondistended. Bowel sounds x4. MUSCULOSKELETAL: No obvious deformities. No clubbing or cyanosis. No edema. NEUROLOGICAL: Awake and alert. No focal neurological deficits. Moves upper and lower extremities spontaneously. Normal speech. PSYCHIATRIC: Appropriate mood and guarded affect; insight and judgment fair to normal. A/P Problem List: (1) Right hip pain ICD Code: M25.551 Status: Acute (2) Cystitis ICD Code: N30.90 Status: Acute Assessment and Plan 80-year-old female noncompliant with medical therapy who presented with intractable right hip pain Right hip pain: CT of the right hip showed moderate osteoarthritis. Ultrasound negative for DVT. Continue PT, patient refuses rehabilitation, casework manager consulted for [facility] when pain control. Pain control with oral [place] and IV morphine as needed. Scheduled Flexeril. Monitor and adjust pain regimen as needed. Patient declines orthopedic evaluation or surgery. Bowel regimen on narcotics. Uncontrolled hypertension: On no meds at home, and refuses to start on BP meds. Clonidine as needed. UTI: Patient was diagnosed with pansensitive UTI in the ED on 05/03. Given oral Ceftin. Was started on IV Rocephin here for empiric coverage of possible pyelonephritis. Afebrile with no leukocytosis. Bilateral adnexal masses: Incidentally seen on abdominal pelvis CT. Needs outpatient DRYING ROOM SUPERVISOR follow-up. DVT prophylaxis: Lovenox Discharge Planning Hopefully discharge home with [facility] once pain is better controlled. Saw Lozoya May 06, 2016 10:43 April Marte MD May 06, 2016 19:05
[2016-05-06] MEDS: DOCUSATE SODIUM 50 MG/SENNA 8.6 MG TAB PO SCH ×2 (10:53→22:15)
[2016-05-06] MEDS: ACETAMINOPHEN/HYDROcodone 325 MG/5 MG TAB PO PRN (10:54)
[2016-05-06] MEDS: ENOXAPARIN SODIUM 40 MG/0.4 ML SYRINGE SQ SCH (10:54)
[2016-05-06] MEDS: cloNIDine HCL 0.1 MG TAB PO PRN ×2 (10:56→16:47)
[2016-05-06] MEDS ORDERED: PILL SPLITTER OTHER PRN (11:00)
[2016-05-06] MEDS: CYCLOBENZAPRINE HCL 10 MG TAB PO SCH ×2 (15:34→22:15)
[2016-05-07] VITALS (8 sets, daily range): BP systolic 107–195; BP diastolic 57–84; PULSE 55–73; RESP 17–20; TEMP 96.3–98; O2SAT 93–99
[2016-05-07] MEDS: SODIUM CHLORIDE 0.9% FLUSH 5 ML FLUSH FLUSH PRN (02:08)
[2016-05-07] MEDS: cefTRIAXone INJ 1,000 MG in SODIUM CHLORIDE 0.9% INJ 100 ML IV SCH (02:08)
[2016-05-07] MEDS: CYCLOBENZAPRINE HCL 10 MG TAB PO SCH ×3 (06:28→21:14)
[2016-05-07] MEDS: DOCUSATE SODIUM 50 MG/SENNA 8.6 MG TAB PO SCH ×2 (09:25→21:00)
[2016-05-07] MEDS: SODIUM CHLORIDE 0.9% FLUSH 5 ML FLUSH FLUSH SCH ×2 (09:26→21:15)
[2016-05-07] MEDS: ENOXAPARIN SODIUM 40 MG/0.4 ML SYRINGE SQ SCH (09:26)
--- NOTE | 2016-05-07 10:08 | HHI.PR ---
Subjective Remarks Follow up for intractable pain, inability to ambulate, and UTI. She states she has not attempted ambulation yet today, awaiting physical therapy. She has continued pain. She is eating well. Denies chest pain, shortness of breath, abdominal pain, or nausea/vomiting. She still wants to go home. She states she has a walker at home and can ambulate with her walker. She also has an electric scooter. Her son has moved in with her to help her around the house. She still does not agree to rehab placement but will agree to home health care. Objective Vitals Vital Signs Date Time Temp Pulse Resp B/P Pulse Ox O2 Delivery O2 Flow Rate FiO2 05/07/16 08:06 97.4 55 20 127/59 93 05/07/16 04:00 96.7 56 17 120/57 95 05/07/16 00:00 96.3 58 18 145/72 96 05/06/16 20:14 54 05/06/16 20:00 97.0 53 18 133/64 98 05/06/16 17:28 140/71 05/06/16 16:36 56 05/06/16 16:00 56 18 170/73 95 05/06/16 11:39 143/67 05/06/16 10:56 182/82 I/O 05/06/16 05/06/16 05/06/16 05/07/16 05/07/16 05/07/16 07:00 15:00 23:00 07:00 15:00 23:00 Intake Total 240 ml Balance 240 ml Intake Oral 240 ml # Voids 2 Result Diagram: 05/05/16230705/05/162307 Imaging Last Impressions Lower Extremity CT 05/06/16 0000 Signed Impressions: Service Date/Time: Friday, May 06, 2016 00:19 - CONCLUSION: 1. Osteoarthritis. No fractures. Aaron Dorsey MD Head CT 05/06/16 0000 Signed Impressions: Service Date/Time: Friday, May 06, 2016 03:16 - CONCLUSION: No acute disease. Aaron Dorsey MD Abdomen/Pelvis CT 05/06/16 0000 Signed Impressions: Service Date/Time: Friday, May 06, 2016 00:19 - CONCLUSION: 1. Diverticulosis without diverticulitis. 2. Extensive atherosclerotic disease. 3. Bilateral complex cystic and solid appearing adnexal masses felt to be ovarian in etiology. Aaron Dorsey MD Lower Extremity Ultrasound 05/05/16 0000 Signed Impressions: Service Date/Time: April 23:39 - CONCLUSION: Normal examination. Aaron Dorsey MD Objective Remarks GENERAL: Well-nourished, well-developed elderly female patient in [facility]. SKIN: Warm and dry. No rash. HEAD: Normocephalic. Atraumatic. NECK: Supple. Trachea midline. CARDIOVASCULAR: Regular rate and rhythm. S1, S2 noted. No murmur appreciated. RESPIRATORY: No accessory muscle use. Clear to auscultation. Breath sounds equal bilaterally. GASTROINTESTINAL: Abdomen soft, non-tender, nondistended. Normoactive bowel sounds x4. MUSCULOSKELETAL: No obvious deformities. Extremities without clubbing, cyanosis , or edema. NEUROLOGICAL: Awake and alert. No obvious cranial nerve deficits. Motor grossly within normal limits. Moves all extremities spontaneously. Normal speech. PSYCHIATRIC: Appropriate mood and affect; insight and judgment normal. Medications and IVs Current Medications Medications (Trade) Dose Ordered Sig/Germain Route Start Time Stop Time Status Last Admin (NS Flush) 2 ml UNSCH PRN FLUSH 05/06/16 01:45 05/07/16 02:08 (NS Flush) 2 ml BID FLUSH 05/06/16 09:00 05/07/16 09:26 (Lovenox Inj) 40 mg Q24H SQ 05/06/16 09:00 05/07/16 09:26 Naloxone HCl 0.4 mg 0.4 mg UNSCH PRN IV 05/06/16 01:45 (Rocephin Inj/NS Inj) 100 ml @ 200 mls/hr Q24H IV 05/06/16 02:00 05/07/16 02:08 (Morphine Inj) 2 mg Q3H PRN IV PUSH 05/06/16 02:00 05/06/16 06:22 ([place] 5-325 Mg) 1 tab Q4H PRN PO 05/06/16 08:00 ([place] 5-325 Mg) 2 tab Q6H PRN PO 05/06/16 08:00 05/06/16 10:54 (Neelam-Colace) 1 tab BID PO 05/06/16 10:45 05/07/16 09:25 (Catapres) 0.1 mg Q6H PRN PO 05/06/16 10:45 05/06/16 16:47 (Flexeril) 5 mg Q8HR PO 05/06/16 14:00 05/07/16 06:28 (Pill Splitter) 1 ea UNSCH PRN OTHER 05/06/16 11:00 05/06/16 22:16 Urinary Catheter: No Vascular Central Line Catheter: No A/P Problem List: (1) Right hip pain ICD Code: M25.551 Status: Acute (2) Cystitis ICD Code: N30.90 Status: Acute Assessment and Plan 80-year-old female noncompliant with medical therapy who presented with intractable right hip pain Right hip pain: CT of the right hip showed moderate osteoarthritis. Ultrasound negative for DVT. Continue PT, patient refuses rehabilitation, bilingual case manager consulted for [facility] arrangements. Pain control with oral [place] and IV morphine as needed. Scheduled Flexeril. Monitor and adjust pain regimen as needed. Patient declines orthopedic evaluation or surgery. Bowel regimen on narcotics. Uncontrolled hypertension: On no meds at home, and refuses to start on BP meds. Clonidine as needed. BP improved today, 120s systolic. UTI: Patient was diagnosed with pansensitive UTI in the ED on 05/03. Given oral Ceftin. Was started on IV Rocephin here for empiric coverage of possible pyelonephritis. Afebrile, no leukocytosis. Discharge on Ceftin 500mg bid x7days. Bilateral adnexal masses: Incidentally seen on abdominal pelvis CT. Needs outpatient MEDICAL APPOINTMENT CLERK follow-up. DVT prophylaxis: Lovenox Written by Jinny Steen, acting as scribe for Dr. Marte on 05/07/16 at 10:08. The documentation accurately reflects the work performed [id number] by sd Dr. Marte on 05/07/16 at 10:08. Discharge Planning Discharge patient to home with [facility] PT/OT/Nursing/Electronics Assembler And Tester Condition on discharge: Improved Heart Healthy Diet as tolerated Ad Kaitlynn activity Rx written: Ceftin 500mg bid x7days Follow-up with primary care physician within 2-3 days Jinny Steen PA-C May 07, 2016 10:08 April Marte MD May 07, 2016 17:59
--- NOTE | 2016-05-07 10:11 | HHI.FF ---
Face to Face Verification Diagnosis: (1) Right hip pain (2) Cystitis (3) UTI (urinary tract infection) (4) Generalized weakness (5) Impaired mobility and ADLs (6) Adnexal mass Physical Therapy Order: Evaluate and Treat, Improve ambulation, Strength and gait training Occupational Therapy Order: Evaluate and Treat, Improve ADL, Gross motor coordination Home Health Nursing Order: Medical education Signs/symptoms of disease process Nursing assessment with vital signs Sanding Machine Buffer Order: To Evaluate: Living conditions/environment, Support services Order: To Provide: Long range planning, Community services I have seen patient Antonette Soto on 05/07/16. My clinical findings support the need for the requested home health care services because: Ltd mobility - disease progression Deconditioned w/ increased weakness Limited ability to care for self Impaired cognition/judgement High risk of falls I certify that my clinical findings support that this patient is homebound because: Unsteady gait/balance Unsafe to leave home unassisted Jinny Steen PA-C May 07, 2016 10:11
[2016-05-07] MEDS ORDERED: SENN1TAB PO (11:53)
[2016-05-07] MEDS ORDERED: CYCL1TAB29 PO (11:53)
[2016-05-07] MEDS ORDERED: CEFT500T3 PO (11:53)
[2016-05-07] MEDS: ACETAMINOPHEN/HYDROcodone 325 MG/5 MG TAB PO PRN (16:43)
[2016-05-07] MEDS: cloNIDine HCL 0.1 MG TAB PO PRN (21:40)
[2016-05-08] MEDS: cefTRIAXone INJ 1,000 MG in SODIUM CHLORIDE 0.9% INJ 100 ML IV SCH (02:23)
[2016-05-08 03:45] VITALS: BP 129/60; PULSE 53; RESP 19; TEMP 97.9; O2SAT 95
[2016-05-08] MEDS: CYCLOBENZAPRINE HCL 10 MG TAB PO SCH ×3 (06:01→21:41)
[2016-05-08 07:23] VITALS: BP 127/57; PULSE 63; RESP 18; TEMP 98; O2SAT 96
[2016-05-08 08:00] VITALS: PULSE 67
[2016-05-08] MEDS: SODIUM CHLORIDE 0.9% FLUSH 5 ML FLUSH FLUSH SCH ×2 (09:00→21:41)
[2016-05-08] MEDS: DOCUSATE SODIUM 50 MG/SENNA 8.6 MG TAB PO SCH ×2 (10:09→21:41)
[2016-05-08] MEDS: ENOXAPARIN SODIUM 40 MG/0.4 ML SYRINGE SQ SCH (10:09)
--- NOTE | 2016-05-08 10:10 | HHI.PR ---
Subjective Remarks Follow-up for intractable hip pain, inability to ambulate, UTI. Patient reports continued pain of her hip and leg. She states the only thing that helps her is the Flexeril, however prefers the 10 mg dosing as she states the 5 mg does not control her pain. Case management reported unable to arrange home health care due to no PCP. The patient still has not ambulated with a walker. Objective Vitals Vital Signs Date Time Temp Pulse Resp B/P Pulse Ox O2 Delivery O2 Flow Rate FiO2 05/08/16 07:23 98.0 63 18 127/57 96 05/08/16 03:45 97.9 53 19 129/60 95 05/07/16 23:38 98.0 58 20 107/58 94 05/07/16 21:43 97.8 73 18 195/84 93 05/07/16 16:00 97.3 61 18 123/58 96 05/07/16 15:22 65 05/07/16 12:30 97.2 66 18 132/60 99 Result Diagram: 05/05/16230705/05/162307 Imaging Last Impressions Lower Extremity CT 05/06/16 0000 Signed Impressions: Service Date/Time: Friday, May 06, 2016 00:19 - CONCLUSION: 1. Osteoarthritis. No fractures. Aaron Dorsey MD Head CT 05/06/16 0000 Signed Impressions: Service Date/Time: Friday, May 06, 2016 03:16 - CONCLUSION: No acute disease. Aaron Dorsey MD Abdomen/Pelvis CT 05/06/16 0000 Signed Impressions: Service Date/Time: Friday, May 06, 2016 00:19 - CONCLUSION: 1. Diverticulosis without diverticulitis. 2. Extensive atherosclerotic disease. 3. Bilateral complex cystic and solid appearing adnexal masses felt to be ovarian in etiology. Aaron Dorsey MD Lower Extremity Ultrasound 05/05/16 0000 Signed Impressions: Service Date/Time: April 23:39 - CONCLUSION: Normal examination. Aaron Dorsey MD Objective Remarks GENERAL: Well-nourished, well-developed elderly female patient in [facility]. SKIN: Warm and dry. No rash. Very dry skin of bilateral lower extremities. HEAD: Normocephalic. Atraumatic. NECK: Supple. Trachea midline. CARDIOVASCULAR: Regular rate and rhythm. S1, S2 noted. No murmur appreciated. RESPIRATORY: No accessory muscle use. Clear to auscultation. Breath sounds equal bilaterally. GASTROINTESTINAL: Abdomen soft, non-tender, nondistended. Normoactive bowel sounds x4. MUSCULOSKELETAL: No obvious deformities. Extremities without clubbing, cyanosis , or edema. NEUROLOGICAL: Awake and alert. No obvious cranial nerve deficits. Motor grossly within normal limits. Moves all extremities spontaneously. Normal speech. PSYCHIATRIC: Appropriate mood and affect; insight and judgment normal. Medications and IVs Current Medications Medications (Trade) Dose Ordered Sig/Germain Route Start Time Stop Time Status Last Admin (NS Flush) 2 ml UNSCH PRN FLUSH 05/06/16 01:45 05/07/16 02:08 (NS Flush) 2 ml BID FLUSH 05/06/16 09:00 05/07/16 21:15 (Lovenox Inj) 40 mg Q24H SQ 05/06/16 09:00 05/08/16 10:09 Naloxone HCl 0.4 mg 0.4 mg UNSCH PRN IV 05/06/16 01:45 (Rocephin Inj/NS Inj) 100 ml @ 200 mls/hr Q24H IV 05/06/16 02:00 05/08/16 02:23 (Morphine Inj) 2 mg Q3H PRN IV PUSH 05/06/16 02:00 05/06/16 06:22 ([place] 5-325 Mg) 1 tab Q4H PRN PO 05/06/16 08:00 ([place] 5-325 Mg) 2 tab Q6H PRN PO 05/06/16 08:00 05/07/16 16:43 (Neelam-Colace) 1 tab BID PO 05/06/16 10:45 05/08/16 10:09 (Catapres) 0.1 mg Q6H PRN PO 05/06/16 10:45 05/07/16 21:40 (Flexeril) 5 mg Q8HR PO 05/06/16 14:00 05/08/16 06:01 (Pill Splitter) 1 ea UNSCH PRN OTHER 05/06/16 11:00 05/06/16 22:16 Urinary Catheter: No Vascular Central Line Catheter: No A/P Problem List: (1) Right hip pain ICD Code: M25.551 Status: Acute (2) Cystitis ICD Code: N30.90 Status: Acute Assessment and Plan 80-year-old female noncompliant with medical therapy who presented with intractable right hip pain Right hip pain: CT of the right hip showed moderate osteoarthritis. Ultrasound negative for DVT. Continue PT, patient refuses rehabilitation, pillowcase cleaner consulted for HHC arrangements. Pain control with oral [place] and IV morphine as needed. Scheduled Flexeril. Heating pad. Monitor and adjust pain regimen as needed. Patient declines orthopedic evaluation or surgery. Bowel regimen while on narcotics. Uncontrolled hypertension: On no meds at home, and refuses to start on BP meds. Clonidine as needed. BP improved today, 120s systolic. UTI: Patient was diagnosed with pansensitive UTI in the ED on 05/03. Afebrile, no leukocytosis. S/p IV Rocephin, Discharge on Ceftin 500mg bid x7days. Bilateral adnexal masses: Incidentally seen on abdominal pelvis CT. Needs outpatient SENIOR SALES ASSISTANT follow-up. DVT prophylaxis: Lovenox Written by Jinny Steen, acting as scribe for Dr. Marte on 05/08/16 at 10:05. The documentation accurately reflects the work performed [id number] by me Dr. Marte on 05/08/16 at 10:05. . Discharge Planning Difficulty arranging HHC in this patient with no PCP. Case management to assist with discharge planning. Patient is still medically clear for discharge when HHC arranged. Discharge patient to home with [facility] PT/OT/Nursing/Real Estate Investment Analyst Condition on discharge: Improved Heart Healthy Diet as tolerated Ad Kaitlynn activity Rx written: Ceftin 500mg bid x7days Follow-up with primary care physician within 2-3 days Jinny Steen PA-C May 08, 2016 10:10 April Marte MD May 08, 2016 14:31
[2016-05-08 12:55] VITALS: BP 137/76; PULSE 62; RESP 17; TEMP 98; O2SAT 95
[2016-05-08] MEDS: ACETAMINOPHEN/HYDROcodone 325 MG/5 MG TAB PO PRN ×2 (14:23→21:42)
[2016-05-08] MEDS: CEFUROXIME AXETIL 500 MG TAB PO SCH ×2 (14:23→21:41)
[2016-05-08] MEDS: MORPHINE SULFATE 4 MG/ML INJ IV PUSH PRN (17:58)
[2016-05-08 21:00] VITALS: BP 170/78; PULSE 67; RESP 18; TEMP 96.2; O2SAT 93
[2016-05-08] MEDS: cloNIDine HCL 0.1 MG TAB PO PRN (21:42)
[2016-05-09 00:21] VITALS: BP 161/74; PULSE 68; RESP 18; TEMP 97.7; O2SAT 98
[2016-05-09 04:50] VITALS: BP 158/78; PULSE 67; RESP 18; TEMP 98.1; O2SAT 97
[2016-05-09] MEDS: CYCLOBENZAPRINE HCL 10 MG TAB PO SCH (06:06)
[2016-05-09] MEDS: MORPHINE SULFATE 4 MG/ML INJ IV PUSH PRN (06:07)
[2016-05-09 08:00] VITALS: PULSE 56
[2016-05-09 08:02] VITALS: BP 132/61; PULSE 56; RESP 17; TEMP 97.6; O2SAT 98
[2016-05-09] MEDS: CEFUROXIME AXETIL 500 MG TAB PO SCH (09:32)
[2016-05-09] MEDS: DOCUSATE SODIUM 50 MG/SENNA 8.6 MG TAB PO SCH (09:32)
[2016-05-09] MEDS: ENOXAPARIN SODIUM 40 MG/0.4 ML SYRINGE SQ SCH (09:32)
--- NOTE | 2016-05-09 10:52 | HHI.PR ---
Subjective Remarks Follow up for hip pain, difficulty with ambulation, UTI. She reports constipation and requesting fleet enema. She was able to ambulate 2 feet yesterday with PT. She still wants to go home with [facility]. Her pain is better controlled. She has no other medical complaints at this time. Objective Vitals Vital Signs Date Time Temp Pulse Resp B/P Pulse Ox O2 Delivery O2 Flow Rate FiO2 05/09/16 08:02 97.6 56 17 132/61 98 05/09/16 08:00 56 05/09/16 06:19 20 05/09/16 04:50 98.1 67 18 158/78 97 05/09/16 00:21 97.7 68 18 161/74 98 05/08/16 23:23 22 05/08/16 21:00 96.2 67 18 170/78 93 05/08/16 12:55 98.0 62 17 137/76 95 Result Diagram: 05/05/16230705/05/162307 Imaging Last Impressions Lower Extremity CT 05/06/16 0000 Signed Impressions: Service Date/Time: Friday, May 06, 2016 00:19 - CONCLUSION: 1. Osteoarthritis. No fractures. Aaron Dorsey MD Head CT 05/06/16 0000 Signed Impressions: Service Date/Time: Friday, May 06, 2016 03:16 - CONCLUSION: No acute disease. Aaron Dorsey MD Abdomen/Pelvis CT 05/06/16 0000 Signed Impressions: Service Date/Time: Friday, May 06, 2016 00:19 - CONCLUSION: 1. Diverticulosis without diverticulitis. 2. Extensive atherosclerotic disease. 3. Bilateral complex cystic and solid appearing adnexal masses felt to be ovarian in etiology. Aaron Dorsey MD Lower Extremity Ultrasound 05/05/16 0000 Signed Impressions: Service Date/Time: April 23:39 - CONCLUSION: Normal examination. Aaron Dorsey MD Objective Remarks GENERAL: Well-nourished, well-developed elderly female patient in [facility]. SKIN: Warm and dry. No rash. Very dry skin of bilateral lower extremities. HEAD: Normocephalic. Atraumatic. NECK: Supple. Trachea midline. CARDIOVASCULAR: Regular rate and rhythm. S1, S2 noted. No murmur appreciated. RESPIRATORY: No accessory muscle use. Clear to auscultation. Breath sounds equal bilaterally. GASTROINTESTINAL: Abdomen soft, non-tender, nondistended. Normoactive bowel sounds x4. MUSCULOSKELETAL: No obvious deformities. Extremities without clubbing, cyanosis , or edema. NEUROLOGICAL: Awake and alert. No obvious cranial nerve deficits. Motor grossly within normal limits. Moves all extremities spontaneously. Normal speech. PSYCHIATRIC: Appropriate mood and affect; insight and judgment normal. Medications and IVs Current Medications Medications (Trade) Dose Ordered Sig/Germain Route Start Time Stop Time Status Last Admin (NS Flush) 2 ml UNSCH PRN FLUSH 05/06/16 01:45 05/07/16 02:08 (NS Flush) 2 ml BID FLUSH 05/06/16 09:00 05/08/16 21:41 (Lovenox Inj) 40 mg Q24H SQ 05/06/16 09:00 05/09/16 09:32 (Narcan Inj) 0.4 mg UNSCH PRN IV 05/06/16 01:45 (Morphine Inj) 2 mg Q3H PRN IV PUSH 05/06/16 02:00 05/09/16 06:07 (Elwood 5-325 Mg) 1 tab Q4H PRN PO 05/06/16 08:00 05/08/16 21:42 (Elwood 5-325 Mg) 2 tab Q6H PRN PO 05/06/16 08:00 05/07/16 16:43 (Neelam-Colace) 1 tab BID PO 05/06/16 10:45 05/09/16 09:32 (Catapres) 0.1 mg Q6H PRN PO 05/06/16 10:45 05/08/16 21:42 (Pill Splitter) 1 ea UNSCH PRN OTHER 05/06/16 11:00 05/06/16 22:16 (Ceftin) 500 mg Q12HR PO 05/08/16 13:00 05/09/16 09:32 (Flexeril) 10 mg Q8HR PO 05/09/16 14:00 Urinary Catheter: No Vascular Central Line Catheter: No A/P Problem List: (1) Right hip pain ICD Code: M25.551 Status: Acute (2) Cystitis ICD Code: N30.90 Status: Acute Assessment and Plan 80-year-old female noncompliant with medical therapy who presented with intractable right hip pain Right hip pain: CT of the right hip showed moderate osteoarthritis. Ultrasound negative for DVT. Continue PT, patient refuses rehabilitation, lining caser consulted for [facility] arrangements. Pain control with oral Elwood and IV morphine as needed. Scheduled Flexeril. Heating pad. Monitor and adjust pain regimen as needed. Patient declines orthopedic evaluation or surgery. Bowel regimen while on narcotics. Pain improved and ambulating few steps with PT, however patient adamantly wants to go home with [facility]. Uncontrolled hypertension: On no meds at home, and refuses to start on BP meds. Clonidine as needed. BP improved today, 120s systolic. UTI: Patient was diagnosed with pansensitive UTI in the ED on 05/03. Afebrile, no leukocytosis. S/p IV Rocephin, Discharge on Ceftin 500mg bid x7days. Bilateral adnexal masses: Incidentally seen on abdominal pelvis CT. Needs outpatient [employer] TECHNICIAN follow-up. Constipation: patient requested fleet enema which relieved her constipation, having normal BM. DVT prophylaxis: Lovenox Written by Jinny Steen, acting as scribe for Dr. Marte on 05/09/16 at 10:50. The documentation accurately reflects the work performed [id number] by me Dr. Marte on 05/09/16 at 10:50. Discharge Planning See discharge summary. Jinny Steen PA-C May 09, 2016 10:52 April Marte MD May 09, 2016 14:59
[2016-05-09] MEDS ORDERED: SOD PHOSPHATE/SOD BIPHOSPHATE (ADULT) ENEMA 133ML PR ONE (12:00)
--- NOTE | 2016-05-09 12:18 | HHI.DS ---
cc: Jessica Odom MD Discharge Summary Admission Date May 06, 2016 at 01:46 Discharge Date: May 09, 2016 Admitting Diagnosis intractable right hip pain (1) Right hip pain ICD Code: M25.551 Diagnosis: Principal (2) Cystitis ICD Code: N30.90 Diagnosis: Principal (3) UTI (urinary tract infection) ICD Code: N39.0 Diagnosis: Principal (4) Generalized weakness ICD Code: R53.1 Diagnosis: Secondary (5) Impaired mobility and ADLs ICD Code: Z74.09 Diagnosis: Secondary (6) adnexal masses, suspect ovarian, incidental finding on CT Diagnosis: Secondary Procedures None. Brief History - From Admission History from patient, ER physician communication, and review of medical records. Patient's son was also at the bedside at the time of my exam. Patient herself is somewhat of a poor historian. He states that he came to the hospital because he is having this and Pain on her right hip. Son but the bedside stated patient has been having chronic right lower extremity pain but she was usually able to ambulate with a walker at home and do most of her activities of daily living without much assistance. However in the past 4 days, patient was having severe right hip pain which started from the knees and clue to her right lower upper lobe lower quadrant abdomen and radiates to her back. She denies falling down. Denies loss of consciousness. Patient denies any burning or pain on urination. She initially came to emergency room about a day ago with similar complaints of right hip pain. At that time during was sent which revealed Escherichia coli UTI. She was actually discharged home on antibiotics cephalosporin for which this bug was sensitive to. In the emergency room, patient's imaging workup was essentially negative. Patient's son at the bedside stated that patient was also tracking her feet when she was having trouble ambulating. Again this is only in the past 4 days. CBC/BMP: 05/05/16230705/05/162307 Imaging Last Impressions Lower Extremity CT 05/06/16 0000 Signed Impressions: Service Date/Time: Friday, May 06, 2016 00:19 - CONCLUSION: 1. Osteoarthritis. No fractures. Aaron Dorsey MD Head CT 05/06/16 0000 Signed Impressions: Service Date/Time: Friday, May 06, 2016 03:16 - CONCLUSION: No acute disease. Aaron Dorsey MD Abdomen/Pelvis CT 05/06/16 0000 Signed Impressions: Service Date/Time: Friday, May 06, 2016 00:19 - CONCLUSION: 1. Diverticulosis without diverticulitis. 2. Extensive atherosclerotic disease. 3. Bilateral complex cystic and solid appearing adnexal masses felt to be ovarian in etiology. Aaron Dorsey MD Lower Extremity Ultrasound 05/05/16 0000 Signed Impressions: Service Date/Time: April 23:39 - CONCLUSION: Normal examination. Aaron Dorsey MD PE at Discharge GENERAL: Well-nourished, well-developed elderly female patient in [facility]. SKIN: Warm and dry. No rash. Very dry skin of bilateral lower extremities. HEAD: Normocephalic. Atraumatic. NECK: Supple. Trachea midline. CARDIOVASCULAR: Regular rate and rhythm. S1, S2 noted. No murmur appreciated. RESPIRATORY: No accessory muscle use. Clear to auscultation. Breath sounds equal bilaterally. GASTROINTESTINAL: Abdomen soft, non-tender, nondistended. Normoactive bowel sounds x4. MUSCULOSKELETAL: No obvious deformities. Extremities without clubbing, cyanosis , or edema. NEUROLOGICAL: Awake and alert. No obvious cranial nerve deficits. Motor grossly within normal limits. Moves all extremities spontaneously. Normal speech. PSYCHIATRIC: Appropriate mood and affect; insight and judgment normal. Hospital Course 80-year-old female noncompliant with medical therapy who presented with intractable right hip pain Right hip pain: CT of the right hip showed moderate osteoarthritis. Ultrasound negative for DVT. Continue PT, patient refuses rehabilitation, case monitor consulted for [facility] arrangements. Pain control with oral Mead and IV morphine as needed however patient preferred to only take Scheduled Flexeril. Heating pad given. Patient declines orthopedic evaluation or surgery. Given bowel regimen while on narcotics. Pain improved and ambulating few steps with PT, however patient adamantly wants to go home with [facility] despite multiple attempts to discuss rehab placement. Uncontrolled hypertension: On no meds at home, and refuses to start on BP meds. Clonidine as needed. BP improved today, 120s systolic. UTI: Patient was diagnosed with pansensitive UTI in the ED on 05/03. Afebrile, no leukocytosis. S/p IV Rocephin, Discharge on Ceftin 500mg bid x7days. Bilateral adnexal masses: Incidentally seen on abdominal pelvis CT. Needs outpatient [employer] follow-up. Constipation: patient requested fleet enema which relieved her constipation, having normal BM. DVT prophylaxis: Lovenox Written by Jinny Steen, acting as scribe for Dr. Marte on 05/09/16 at 10:50. The documentation accurately reflects the work performed [id number] by me Dr. Marte on 05/09/16 at 10:50. Pt Condition on Discharge: Stable Discharge Disposition: Disch w/ Home Health Serv Discharge Time: > 30 minutes Discharge Instructions DIET: Follow Instructions for: Heart Healthy Diet Activities you can perform: Regular-No Restrictions Follow up Referrals: [employer] - 1 Week PCP Follow-up - 2-3 Days with Jessica Odom MD New Medications: Cyclobenzaprine (Flexeril) 10 Mg Tab 5 MG PO Q8HR PRN MUSCLE SPASM #21 TAB Sennosides-Docusate Sodium (Senna Plus 8.6-50 mg) 1 Tab Tab 1 TAB PO BID Constipation #30 TAB Continued Medications: Cefuroxime (Ceftin) 500 Mg Tab 500 MG PO BID Infection #14 Ref 0 TAB (This prescription has been renewed) Hydrocodone-Acetaminophen (Lortab) 5-325 Mg Tab 1 TAB PO Q8HR PRN PAIN SCALE 6 TO 10 #20 Ref 0 TAB Jinny Steen PA-C May 09, 2016 12:18 April Marte MD May 09, 2016 15:00
[2016-05-09] MEDS ORDERED: CYCLOBENZAPRINE HCL 10 MG TAB PO SCH (14:00)
[2016-05-09] MEDS: ACETAMINOPHEN/HYDROcodone 325 MG/5 MG TAB PO PRN (16:43)
== END 2016-05-09 18:54 | disposition home or self-care (01) ==
LOC: NEPC 21:29 → NEDA 05-06 01:46 → NEPFCDU 05-06 05:30
PROVIDERS: ADMIT Hospitalist; ATTEND Hospitalist
DX: M16.11 Unilateral primary osteoarthritis, right hip (principal); N30.90 Cystitis, unspecified without hematuria; B96.20 Unspecified Escherichia coli [E. coli] as the cause of diseases classified elsewhere; M79.604 Pain in right leg; M25.551 Pain in right hip; M79.89 Other specified soft tissue disorders; I25.10 Atherosclerotic heart disease of native coronary artery without angina pectoris; I89.0 Lymphedema, not elsewhere classified; I10 Essential (primary) hypertension; I48.91 Unspecified atrial fibrillation; K59.00 Constipation, unspecified; R53.1 Weakness; Z95.1 Presence of aortocoronary bypass graft; Z74.09 Other reduced mobility
CPT/HCPCS: 70450; 73700; 74176; 80053; 85025; 93971; 96361; 96374; 96376; 97110; 97116; 97163; 97530; 99285; G0378; G8987; G8988; J0696; J1650; J2270; J7040

== ENCOUNTER 2017-02-08 17:57 | Emergency (ER) | payer OTHER ==
[~2017-02-08] VITALS: Ht 167.6 cm; Wt 95.0 kg
[~2017-02-08 17:57] MED LIST changes: +CYCL10TA PO; +SENN1TAB PO
[2017-02-08 18:04] VITALS: BP 180/79; PULSE 98; RESP 30; TEMP 97.7; O2SAT 97
[2017-02-08] MEDS ORDERED: SODIUM CHLORIDE 0.9% FLUSH 10 ML FLUSH IV FLUSH PRN (18:15)
--- NOTE | 2017-02-08 18:18 | PD ---
HPI Chief Complaint: GI Complaint Time Seen by Provider: 18:13 Travel History International Travel<30 days: No Contact w/Intl Traveler<30days: No Traveled to known affect area: No History of Present Illness HPI 81-year-old female presents to the ED via EMS for evaluation of 5 day history of constipation and worsening cough. She denies fever, chills, chest pain, palpitations, shortness of breath, abdominal pain, nausea, vomiting, dysuria. She states that she is cared for by her sons at home, is minimally ambulatory. She is followed by Dr. Odom. FOR[facility]LY [facility] Past Medical History Heart Rhythm Problems: No Cancer: No Cardiovascular Problems: Yes (bipass x 3 2008) High Cholesterol: Yes Chemotherapy: No Chest Pain: No Congestive Heart Failure: No Coronary Artery Disease: Yes Diabetes: No Diminished Hearing: Yes ([facility]) Endocrine: Yes Genitourinary: No Immune Disorder: No Musculoskeletal: Yes (admitted for r-hip pain.) Neurologic: No Psychiatric: No Respiratory: No Radiation Therapy: No Thyroid Disease: Yes (inferior r-lobe removed.) : 6 Para: 4 Miscarriage: 2 Past Surgical History Appendectomy: Yes Cardiac Surgery: Yes (CABG X 3, CARDIAC CATH) Hysterectomy: Yes (paritial ) Tonsillectomy: Yes Other Surgery: Yes (CATARACT SX, THYROID SX, FIBROID CYST RT BREAST) Social History Alcohol Use: No Tobacco Use: No Substance Use: No Allergies-Medications (Allergen,Severity, Reaction): Coded Allergies: Sulfa (Sulfonamide Antibiotics) (Unverified Allergy, Severe, 02/08/17) alprazolam (Unverified Allergy, Severe, 02/08/17) gatifloxacin (Unverified Allergy, Severe, 02/08/17) loratadine (Unverified Allergy, Severe, 02/08/17) nitrofurantoin (Unverified Allergy, Severe, 02/08/17) penicillin G (Unverified Allergy, Severe, 02/08/17) pentazocine (Unverified Allergy, Severe, 02/08/17) pseudoephedrine (Unverified Allergy, Severe, 02/08/17) sertraline (Unverified Allergy, Severe, 02/08/17) ibuprofen (Unverified Allergy, Unknown, H/A, 02/08/17) Uncoded Allergies: BACTRIM (Allergy, Severe, 08/15/11) FISH (Allergy, Severe, 08/15/11) TOLECTIN (Allergy, Unknown, 12/24/15) Reported Meds & Prescriptions Reported Meds & Active Scripts Active Azithromycin 250 Mg Tab 250 Mg PO DIRECTED Take 2 tabs (500 mg) on day 1 then 1 tab daily x 4 days. Reported [citrucel ] Review of Systems Except as stated in HPI: all other systems reviewed are Neg Physical Exam Narrative GENERAL: Chronically ill-appearing white female in no acute distress. SKIN: Focused skin assessment warm/dry. Chronic skin changes of the bilateral lower extremities with mild edema and erythema to the knees. No warmth, tenderness, crepitus noted HEAD: Normocephalic. EYES: No scleral icterus. No injection or drainage. NECK: Supple, trachea midline. No JVD or lymphadenopathy. CARDIOVASCULAR: Regular rate and rhythm without murmurs, gallops, or rubs. RESPIRATORY: Breath sounds equal bilaterally. Mild rhonchi, left greater than right. Wet sounding cough. No accessory muscle use. GASTROINTESTINAL: Abdomen soft, non-tender, nondistended. MUSCULOSKELETAL: No cyanosis, or edema. Homans sign negative bilaterally. BACK: Nontender without obvious deformity. No CVA tenderness. Data Data Last Documented VS Vital Signs Date Time Temp Pulse Resp B/P (MAP) Pulse Ox O2 Delivery O2 Flow Rate FiO2 02/08/17 18:17 22 02/08/17 18:04 97.7 98 180/79 (112) 97 Orders Orders Complete Blood Count With Diff (02/08/17 18:09) Comprehensive Metabolic Panel (02/08/17 18:) Lipase (02/08/17 18:09) Lactic Acid (02/08/17 18:09) Prothrombin Time / Inr (Pt) (02/08/17 18:) Act Partial Throm Time (Ptt) (02/08/17 18:09) Iv Access Insert/Monitor (02/08/17 18:) Ecg Monitoring (02/08/17 18:09) Oximetry (02/08/17 18:09) Sodium Chloride 0.9% Flush (Ns Flush) (02/08/17 18:15) Electrocardiogram (02/08/17 18:09) Blood Culture (02/08/17 18:09) Chest, Single Ap (02/08/17 18:09) Magnesium Citrate Liq (Citroma Liq) (02/08/17 19:00) Glycerin Adult Supp (Glycerin Adult Supp (02/08/17 19:00) Azithromycin (Zithromax) (02/08/17 19:30) Ed Discharge Order (02/08/17 19:22) Labs Laboratory Tests Test 02/08/17 18:25 White Blood Count 5.0 TH/MM3 Red Blood Count 4.59 MIL/MM3 Hemoglobin 14.3 GM/DL Hematocrit 42.4 % Mean Corpuscular Volume 92.3 FL Mean Corpuscular Hemoglobin 31.1 PG Mean Corpuscular Hemoglobin Concent 33.7 % Red Cell Distribution Width 15.1 % Platelet Count 161 TH/MM3 Mean Platelet Volume 7.9 FL Neutrophils (%) (Auto) 66.0 % Lymphocytes (%) (Auto) 23.9 % Monocytes (%) (Auto) 7.1 % Eosinophils (%) (Auto) 2.1 % Basophils (%) (Auto) 0.9 % Neutrophils # (Auto) 3.3 TH/MM3 Lymphocytes # (Auto) 1.2 TH/MM3 Monocytes # (Auto) 0.4 TH/MM3 Eosinophils # (Auto) 0.1 TH/MM3 Basophils # (Auto) 0.0 TH/MM3 CBC Comment DIFF FINAL Differential Comment Prothrombin Time 11.1 SEC Prothromb Time International Ratio 1.0 RATIO Activated Partial Thromboplast Time 30.2 SEC Blood Urea Nitrogen 16 MG/DL Creatinine 0.87 MG/DL Random Glucose 130 MG/DL Total Protein 7.7 GM/DL Albumin 3.9 GM/DL Calcium Level 9.0 MG/DL Alkaline Phosphatase 83 U/L Aspartate Amino Transf (AST/SGOT) 23 U/L Alanine Aminotransferase (ALT/SGPT) 17 U/L Total Bilirubin 0.7 MG/DL Sodium Level 139 MEQ/L Potassium Level 4.1 MEQ/L Chloride Level 106 MEQ/L Carbon Dioxide Level 23.3 MEQ/L Anion Gap 10 MEQ/L Estimat Glomerular Filtration Rate 62 ML/MIN Lactic Acid Level 2.5 mmol/L Lipase 133 U/L MDM Medical Decision Making Medical Screen Exam Complete: Yes Emergency Medical Condition: Yes Differential Diagnosis Fecal impaction versus bowel obstruction versus pneumonia versus cellulitis versus other Narrative Course 81-year-old female presents to the ED via EMS for evaluation of 5 day history of constipation and worsening cough. She denies fever, chills, chest pain, palpitations, shortness of breath, abdominal pain, nausea, vomiting, dysuria. She states that she is cared for by her sons at home, is minimally ambulatory. She is followed by Dr. Odom. Vitals reviewed. Respiratory rate 30 on arrival, improved on recheck. Physical exam reveals a chronically ill-appearing white female in no acute distress. She has coarse breath sounds, left greater than right and a wet sounding cough. She has lower abdominal TTP. Chronic skin changes in the bilateral lower extremities with negative Homans sign. EKG rate 92, sinus rhythm. OH interval 184, QRS 84, QTC 4:15. Normal axis. Moderate T-wave abnormality in V3 through 6. Reviewed by Dr. Hughes. CXR: Streaky opacity in the left lung base, scarring versus atelectasis versus pneumonia per radiology read. CBC, CMP, coags unremarkable. Dr. Hughes performed a fecal disimpaction at bedside. Patient was administered glycerin suppository and mag citrate by mouth. She is prescribed a Z-Jay for CAP, first dose administered in the ED. She is instructed to take a daily stool softener, follow up with Dr. Odom. We discussed reasons to return to the ED. Patient sons are at bedside and indicated understanding of the instructions and are agreeable to the plan. The patient is stable and discharged home. Diagnosis Primary Impression: CAP (community acquired pneumonia) Qualified Codes: J18.1 - Lobar pneumonia, unspecified organism Additional Impression: Fecal impaction in rectum Referrals: Jessica Odom MD Patient Instructions: Community Acquired Pneumonia (DC), Fecal Impaction (ED), General Instructions Additional Instructions: Rest, hydrate. Returned normal, gentle activities as tolerated. Take a stool softener daily to avoid fecal impaction. Take all antibiotics as they are prescribed, even if your symptoms resolve during the course of treatment. Follow-up with Dr. Odom as discussed. Return to the ED for any urgent or emergent medical condition. Med/Other Pt SpecificInfo: Prescription(s) given Scripts Azithromycin (Azithromycin) 250 Mg Tab 250 MG PO DIRECTED for Infection, #6 TAB 0 Refills Take 2 tabs (500 mg) on day 1 then 1 tab daily x 4 days. Prov: Juan Ramon Hughes MD 02/08/17 Disposition: 01 DISCHARGE HOME Condition: Stable Mamta Bourgeois Feb 08, 2017 18:17
[2017-02-08] MEDS ORDERED: citrucel (18:21)
[2017-02-08 18:45] LABS: AUTOMATED NEUTROPHIL # 3.3 TH/MM3 (1.8-7.7); BASOPHIL % 0.9 % (0.0-2.0); EOSINOPHIL # 0.1 TH/MM3 (0-0.4); EOSINOPHIL % 2.1 % (0.0-4.0); HEMATOCRIT 42.4 % (35.0-46.0); HEMO FLAGS DIFF FINAL; LYMPH % 23.9 % (9.0-44.0); LYMPHOCYTE # 1.2 TH/MM3 (1.0-4.8); MEAN CELL VOLUME 92.3 FL (80.0-100.0); MEAN CORPUSCULAR HEMOGLOBIN 31.1 PG (27.0-34.0); MEAN CORPUSCULAR HGB CONC 33.7 % (32.0-36.0); MONO % 7.1 % (0.0-8.0); PLATELET COUNT 161 TH/MM3 (150-450); RED BLOOD COUNT 4.59 MIL/MM3 (4.00-5.30); RED CELL DISTRIBUTION WIDTH 15.1 % (11.6-17.2)
--- NOTE | 2017-02-08 18:45 | RADRPT ---
EXAM DATE/TIME: 02/08/2017 18:39 [facility] COMPARISON: No previous studies available for comparison. INDICATIONS : Short of breath and cough for 2 days. MEDICAL HISTORY : Cardiovascular disease. Hypercholesterolemia. SURGICAL HISTORY : CABG. Appendectomy. Tonsillectomy. Cataract surgery ENCOUNTER: Initial ACUITY: 2 days PAIN SCORE: 2/10 LOCATION: Bilateral chest FINDINGS: A single view of the chest demonstrates the lungs to be symmetrically aerated without evidence of mas s, consolidative infiltrate or effusion. The cardiomediastinal contours are unremarkable. Osseous s tructures are intact. The patient is status post median sternotomy. Atherosclerotic changes are prese nt in the aorta. There is mild patchy opacity in the left lung base. Multiple overlying electrocardio gram leads are present. CONCLUSION: 1. Mild streaky opacity in the left lung base which could represent scarring or atelectasis. Pneumoni a is also a consideration. 2. Status post median sternotomy. Prakash Dailey MD on February 08, 2017 at 18:43 Board Certified Radiologist. This report was verified electronically.
--- NOTE | 2017-02-08 18:58 | PD ---
Data Data Last Documented VS Vital Signs Date Time Temp Pulse Resp B/P (MAP) Pulse Ox O2 Delivery O2 Flow Rate FiO2 02/08/17 18:17 22 02/08/17 18:04 97.7 98 180/79 (112) 97 Orders Orders Complete Blood Count With Diff (02/08/17 18:09) Comprehensive Metabolic Panel (02/08/17 18:09) Lipase (02/08/17 18:09) Lactic Acid (02/08/17 18:09) Prothrombin Time / Inr (Pt) (02/08/17 18:09) Act Partial Throm Time (Ptt) (02/08/17 18:09) Urinalysis - C+S If Indicated (02/08/17 18:09) Iv Access Insert/Monitor (02/08/17 18:09) Ecg Monitoring (02/08/17 18:09) Oximetry (02/08/17 18:09) Sodium Chloride 0.9% Flush (Ns Flush) (02/08/17 18:15) Electrocardiogram (02/08/17 18:09) Blood Culture (02/08/17 18:09) Chest, Single Ap (02/08/17 18:09) Magnesium Citrate Liq (Citroma Liq) (02/08/17 19:00) Glycerin Adult Supp (Glycerin Adult Supp (02/08/17 19:00) Labs Laboratory Tests Test 02/08/17 18:25 White Blood Count 5.0 TH/MM3 Red Blood Count 4.59 MIL/MM3 Hemoglobin 14.3 GM/DL Hematocrit 42.4 % Mean Corpuscular Volume 92.3 FL Mean Corpuscular Hemoglobin 31.1 PG Mean Corpuscular Hemoglobin Concent 33.7 % Red Cell Distribution Width 15.1 % Platelet Count 161 TH/MM3 Mean Platelet Volume 7.9 FL Neutrophils (%) (Auto) 66.0 % Lymphocytes (%) (Auto) 23.9 % Monocytes (%) (Auto) 7.1 % Eosinophils (%) (Auto) 2.1 % Basophils (%) (Auto) 0.9 % Neutrophils # (Auto) 3.3 TH/MM3 Lymphocytes # (Auto) 1.2 TH/MM3 Monocytes # (Auto) 0.4 TH/MM3 Eosinophils # (Auto) 0.1 TH/MM3 Basophils # (Auto) 0.0 TH/MM3 CBC Comment DIFF FINAL Differential Comment MDM Supervised Visit with KAMERON: Yes Narrative Course The history, exam, and medical decision-making in the associated mid-level provider note were completed with my assistance. I reviewed and agree with the findings presented. I attest that I had a [id number] encounter with the patient on the same day, and personally performed and documented my assessment and findings in the medical record. *My assessment and Findings: 81 year-old woman presents to the emergency department with constipation and impaction. Seen by the PA who was also worried about the patient's productive cough and had labs and x-ray ordered. I examine the patient and she had fecal impaction. She was disimpacted bedside. We'll treat with glycerin suppository and magnesium citrate. Chest x-ray just a mild pneumonia. Consider antibiotics. Juan Ramon Hughes MD Feb 08, 2017 18:58
[2017-02-08] MEDS ORDERED: MAGNESIUM CITRATE SOLN 300 ML BTL PO ONE (19:00)
[2017-02-08] MEDS ORDERED: GLYCERIN ADULT 2 GM SUPP RECTAL ONE (19:00)
[2017-02-08 19:04] LABS: ALT (GPT) 17 U/L (10-53); ANION GAP 10 MEQ/L (5-15); AST (GOT) 23 U/L (15-37); BICARBONATE 23.3 MEQ/L (21.0-32.0); BLOOD UREA NITROGEN 16 MG/DL (7-18); CHLORIDE 106 MEQ/L (98-107); GLOMERULAR FILTRATION RATE 62 ML/MIN (>89); POTASSIUM 4.1 MEQ/L (3.5-5.1); SODIUM (NA) 139 MEQ/L (136-145)
[2017-02-08 19:07] LABS: ALKALINE PHOSPHATASE 83 U/L (45-117); TOTAL BILIRUBIN ADULT 0.7 MG/DL (0.2-1.0)
[2017-02-08] MEDS ORDERED: AZIT250T3 PO (19:20)
[2017-02-08 19:28] LABS: APTT (PATIENT) 30.2 SEC (24.3-30.1); PROTHROMBIN TIME - PATIENT 11.1 SEC (9.8-11.6)
[2017-02-08] MEDS ORDERED: AZITHROMYCIN 250 MG TAB PO ONE (19:30)
--- NOTE | 2017-02-09 13:16 | EKG ---
Date Performed: 02/08/2017 Time Performed: 18:41:13 PTAGE: 81 years EKG: Sinus rhythm ST DEVIATION AND MODERATE T-WAVE ABNORMALITY, CONSIDER ANTEROLATERAL ISCHEMIA ABNORMAL ECG NO PREVIOUS TRACING DOCTOR: Victorino Kendrick Interpretating Date/Time 02/09/2017 13:14:35
== END 2017-02-08 20:48 | disposition home or self-care (01) ==
LOC: NEPC 17:57
DX: J18.1 Lobar pneumonia, unspecified organism (principal); K56.41 Fecal impaction; I25.10 Atherosclerotic heart disease of native coronary artery without angina pectoris; R94.31 Abnormal electrocardiogram [ECG] [EKG]; E78.00 Pure hypercholesterolemia, unspecified; Z88.0 Allergy status to penicillin
CPT/HCPCS: 71010; 80053; 83605; 83690; 85025; 85610; 85730; 87040; 93005; 99285

== ENCOUNTER 2017-02-19 07:01 | Emergency (ER) | payer OTHER ==
[~2017-02-19] VITALS: Ht 167.6 cm; Wt 86.3 kg
[~2017-02-19 07:01] MED LIST changes: +AZIT250T3 PO; -CEFT500T3 PO; -CYCL10TA PO; -HYDR-3533 PO; -SENN1TAB PO; +citrucel
[2017-02-19 07:17] VITALS: BP 174/84; PULSE 67; RESP 15; TEMP 98.2; O2SAT 97
[2017-02-19] MEDS ORDERED: oxyCODONE/ACETAMINOPHEN 5 MG/325 MG TAB PO ONE (07:30)
--- NOTE | 2017-02-19 07:43 | PD ---
HPI Chief Complaint: Headache Time Seen by Provider: 07:14 Travel History International Travel<30 days: No Contact w/Intl Traveler<30days: No Traveled to known affect area: No History of Present Illness HPI The patient was seen and examined in the presence of the nurse. This patient called the ambulance to bring her in for evaluation due to headache. She woke up at 3 AM with a left-sided frontal throbbing headache. There is no thunderclap onset. She has no head injury. She denies any blood thinners. He is not typical for her to get headaches. She has no history of migraines. He denies any new neurologic complaints. However for the last month she is been leaning to the left side. She has a very noticeable facial droop she says is not new. She has been blaming it on her dentures. She denies any specific muscle group weakness or sensory loss or speech abnormality. Headache is of mild to moderate severity. It significantly improved spontaneously. She rates it now is 4 out of 10. Duration is 4-1/2 hours. No exacerbating factors. No obvious alleviating factors. PFSH Past Medical History Heart Rhythm Problems: No Cancer: No Cardiovascular Problems: Yes (CHF CABG) High Cholesterol: Yes Chemotherapy: No Chest Pain: No Congestive Heart Failure: No Coronary Artery Disease: Yes Diabetes: No Diminished Hearing: Yes ([place]) Endocrine: Yes Genitourinary: No Immune Disorder: No Musculoskeletal: Yes (admitted for r-hip pain.) Neurologic: No Psychiatric: No Respiratory: No Radiation Therapy: No Thyroid Disease: Yes (inferior r-lobe removed.) : 6 Para: 4 Miscarriage: 2 Past Surgical History Appendectomy: Yes Cardiac Surgery: Yes (CABG X 3, CARDIAC CATH) Hysterectomy: Yes (paritial ) Tonsillectomy: Yes Other Surgery: Yes (CATARACT SX, THYROID SX, FIBROID CYST RT BREAST) Social History Alcohol Use: No Tobacco Use: No Substance Use: No Allergies-Medications (Allergen,Severity, Reaction): Coded Allergies: Sulfa (Sulfonamide Antibiotics) (Unverified Allergy, Severe, 02/19/17) alprazolam (Unverified Allergy, Severe, 02/19/17) gatifloxacin (Unverified Allergy, Severe, 02/19/17) loratadine (Unverified Allergy, Severe, 02/19/17) nitrofurantoin (Unverified Allergy, Severe, 02/19/17) penicillin G (Unverified Allergy, Severe, 02/19/17) pentazocine (Unverified Allergy, Severe, 02/19/17) pseudoephedrine (Unverified Allergy, Severe, 02/19/17) sertraline (Unverified Allergy, Severe, 02/19/17) ibuprofen (Unverified Allergy, Unknown, H/A, 02/19/17) Uncoded Allergies: BACTRIM (Allergy, Severe, 08/15/11) FISH (Allergy, Severe, 08/15/11) TOLECTIN (Allergy, Unknown, 12/24/15) Reported Meds & Prescriptions Reported Meds & Active Scripts Active Tylenol-Codeine #3 (Acetaminophen-Codeine) 300-30 mg Tab 1 Tab PO Q6HR PRN Azithromycin 250 Mg Tab 250 Mg PO DIRECTED Take 2 tabs (500 mg) on day 1 then 1 tab daily x 4 days. Reported [citrucel ] Review of Systems General / Constitutional: No: Fever Eyes: No: Visual changes HENT: Positive: Headaches Cardiovascular: No: Chest Pain or Discomfort Respiratory: No: Shortness of Breath Gastrointestinal: No: Abdominal Pain Genitourinary: No: Dysuria Musculoskeletal: No: Pain Skin: No Rash Neurologic: Positive: Weakness, Headache Psychiatric: No: Depression Endocrine: No: Polydipsia Hematologic/Lymphatic: No: Easy Bruising Physical Exam Narrative GENERAL: Well-nourished, well-developed patient with mild headache leaning to the left side . SKIN: Focused skin assessment reveals no rash and nodules. Skin is Warm and dry. HEAD: Atraumatic. Normocephalic. EYES: Pupils equal and round. No scleral icterus. No injection or drainage. ENT: No nasal bleeding or discharge. Mucous membranes pink and moist. NECK: Trachea midline. No JVD. CARDIOVASCULAR: Regular rate and rhythm. No murmur appreciated. RESPIRATORY: No accessory muscle use. Clear to auscultation. Breath sounds equal bilaterally. GASTROINTESTINAL: Abdomen soft, non-tender, nondistended. Hepatic and splenic margins not palpable. MUSCULOSKELETAL: No obvious deformities. No clubbing. No cyanosis. Symmetric pitting edema of the midshin down with hyperpigmented thickened skin suggesting chronicity . NEUROLOGICAL: Awake and alert. No obvious cranial nerve deficits. Motor grossly within normal limits other than what looks like a left-sided facial droop. Normal speech. PSYCHIATRIC: Appropriate mood and affect; insight and judgment reasonable for age. Data Data Last Documented VS Vital Signs Date Time Temp Pulse Resp B/P (MAP) Pulse Ox O2 Delivery O2 Flow Rate FiO2 02/19/17 07:17 98.2 67 15 174/84 (114) 97 Room Air Orders Orders Ct Brain W/O Iv Contrast(Rout) (02/19/17 ) Oxycodone-Acetamin 5-325 Mg (Percocet (02/19/17 07:30) MDM Medical Decision Making Medical Screen Exam Complete: Yes Emergency Medical Condition: Yes Medical Record Reviewed: Yes Differential Diagnosis Differential diagnosis includes migraine, tension headache, cluster headache, meningitis. Narrative Course I have reviewed the patient's electronic medical record. Patient was seen here recently and diagnosed with a respiratory infection and is currently on antibiotics. Presentation is not consistent with subarachnoid hemorrhage or meningitis I have very low clinical suspicion of temporal arteritis. Given that she is currently have an active respiratory infection I don't feel sedimentation rate would be useful as certainly will be elevated. I suspect that she had a stroke a month ago. She's been leaning to the left side and has a droop. I don't think this needs inpatient emergent workup but should get evaluated by her physician to start with and consider further neurologic workup For brain CT is negative we'll start her on a daily aspirin she does not take I gave her 1 pain pill for her headache which is improving spontaneously Brain CT shows chronic changes but nothing acute There is no hemorrhage On recheck the patient seems much better. She is dozing off when I reevaluate her I spoke with her son Recommend primary care follow-up He wanted a pain prescription to use just in case. We discussed the negatives of that including sedation and constipation which is another problem she has. I wrote her a dozen Tylenol 3 Diagnosis Primary Impression: Headache Qualified Codes: R51 - Headache Additional Instructions: The patient was advised to follow up with their physician and return if they worsen. The patient was warned about potential sedation for the medications they will receive on prescription. Med/Other Pt SpecificInfo: Prescription(s) given Scripts Acetaminophen-Codeine (Tylenol-Codeine #3) 300-30 mg Tab 1 TAB PO Q6HR Y for PAIN, #12 TAB 0 Refills Prov: Otf Coulter MD 02/19/17 Disposition: 01 DISCHARGE HOME Condition: Stable Otf Coulter MD Feb 19, 2017 07:43
--- NOTE | 2017-02-19 08:41 | RADRPT ---
EXAM DATE/TIME: 02/19/2017 07:42 [facility] COMPARISON: CT BRAIN W/O CONTRAST, May 06, 2016, 3:16. INDICATIONS : Headache. RADIATION DOSE: 69.35 CTDIvol (mGy) MEDICAL HISTORY : Cardiovascular disease. Hypercholesterolemia. Congestive heart failure. SURGICAL HISTORY : CABG Partial hysterectomy, thyroid, rt breast cyst. ENCOUNTER: Initial ACUITY: 1 day PAIN SCALE: 10/10 LOCATION: cranial TECHNIQUE: Multiple contiguous axial images were obtained of the head. Using automated exposure control and adj ustment of the mA and/or kV according to patient size, radiation dose was kept as low as reasonably a chievable to obtain optimal diagnostic quality images. DICOM format image data is available electro nically for review and comparison. FINDINGS: CEREBRUM: The ventricles are prominent. No evidence of midline shift, mass lesion, hemorrhage or acute infarct ion. No extra-axial fluid collections are seen. POSTERIOR FOSSA: The cerebellum and brainstem are intact. The 4th ventricle is midline. The cerebellopontine angle i s unremarkable. EXTRACRANIAL: The visualized portion of the orbits is intact. SKULL: The calvaria is intact. No evidence of skull fracture. CONCLUSION: 1. Aging brain with volume loss. 2. No evidence of acute infarct, hemorrhage, mass or edema. Huey Bond MD on February 19, 2017 at 8:39 Board Certified Radiologist. This report was verified electronically.
[2017-02-19] MEDS ORDERED: TYLETAB34 PO (10:00)
[2017-02-19 12:15] VITALS: BP 157/89; PULSE 67; RESP 20; O2SAT 97
[2017-02-19 14:00] VITALS: BP 117/68
== END 2017-02-19 14:01 | disposition home or self-care (01) ==
LOC: NEPE 07:01 → NEDAMB 14:01
DX: R51 Headache (principal)
CPT/HCPCS: 70450; 99284

== ENCOUNTER 2017-02-26 01:55 | Emergency (ER) | payer OTHER ==
[~2017-02-26] VITALS: Ht 167.6 cm; Wt 86.4 kg
[~2017-02-26 01:55] MED LIST changes: +TYLETAB34 PO
[2017-02-26 02:00] VITALS: BP 154/74; PULSE 83; RESP 18; TEMP 97.2; O2SAT 90
--- NOTE | 2017-02-26 05:33 | PD ---
HPI Chief Complaint: constipation Time Seen by Provider: 05:26 Travel History International Travel<30 days: No Contact w/Intl Traveler<30days: No History of Present Illness HPI The patient is 81 years old and suffers with routine episodes of constipation stating that most recently she has been unable to the past stool for one week. Positive flatus. No vomiting. Oral intake has been normal. Typically her son helps her to and from the commode which evidently has been somewhat complicated by her sons chronic back pain. Patient reports no improvement with stool softeners. No fever. No abdominal pain. Timing constant. PFSH Past Medical History Heart Rhythm Problems: No Cancer: No Cardiovascular Problems: Yes (CHF CABG) High Cholesterol: Yes Chemotherapy: No Chest Pain: No Congestive Heart Failure: No Coronary Artery Disease: Yes Diabetes: No Diminished Hearing: Yes ([place]) Endocrine: Yes Genitourinary: No Immune Disorder: No Musculoskeletal: Yes (admitted for r-hip pain.) Neurologic: No Psychiatric: No Respiratory: No Radiation Therapy: No Thyroid Disease: Yes (inferior r-lobe removed.) : 6 Para: 4 Miscarriage: 2 Past Surgical History Appendectomy: Yes Cardiac Surgery: Yes (CABG X 3, CARDIAC CATH) Hysterectomy: Yes (paritial ) Tonsillectomy: Yes Other Surgery: Yes (CATARACT SX, THYROID SX, FIBROID CYST RT BREAST) Social History Alcohol Use: No Tobacco Use: No Substance Use: No Allergies-Medications (Allergen,Severity, Reaction): Coded Allergies: Sulfa (Sulfonamide Antibiotics) (Unverified Allergy, Severe, 02/19/17) alprazolam (Unverified Allergy, Severe, 02/19/17) gatifloxacin (Unverified Allergy, Severe, 02/19/17) loratadine (Unverified Allergy, Severe, 02/19/17) nitrofurantoin (Unverified Allergy, Severe, 02/19/17) penicillin G (Unverified Allergy, Severe, 02/19/17) pentazocine (Unverified Allergy, Severe, 02/19/17) pseudoephedrine (Unverified Allergy, Severe, 02/19/17) sertraline (Unverified Allergy, Severe, 02/19/17) ibuprofen (Unverified Allergy, Unknown, H/A, 02/19/17) Uncoded Allergies: BACTRIM (Allergy, Severe, 08/15/11) FISH (Allergy, Severe, 08/15/11) TOLECTIN (Allergy, Unknown, 12/24/15) Reported Meds & Prescriptions Reported Meds & Active Scripts Active Tylenol-Codeine #3 (Acetaminophen-Codeine) 300-30 mg Tab 1 Tab PO Q6HR PRN Azithromycin 250 Mg Tab 250 Mg PO DIRECTED Take 2 tabs (500 mg) on day 1 then 1 tab daily x 4 days. Reported [citrucel ] Review of Systems Except as stated in HPI: all other systems reviewed are Neg General / Constitutional: No: Fever Physical Exam Narrative GENERAL: 81-year-old female moderate distress secondary to constipation RECTAL: Hard stool in the vault. No hemorrhoids. No hematochezia or lives mass in the rectum. SKIN: Warm and dry. HEAD: Atraumatic. Normocephalic. EYES: Pupils equal and round. No scleral icterus. No injection or drainage. NECK: Trachea midline. No JVD. CARDIOVASCULAR: Regular rate and rhythm. RESPIRATORY: No accessory muscle use. Clear to auscultation. Breath sounds equal bilaterally. GASTROINTESTINAL: Abdomen soft, non-tender, nondistended. Hepatic and splenic margins not palpable. MUSCULOSKELETAL: Extremities without clubbing, cyanosis, or edema. No obvious deformities. NEUROLOGICAL: Awake and alert. No obvious cranial nerve deficits. Motor grossly within normal limits. Five out of 5 muscle strength in the arms and legs. Normal speech. PSYCHIATRIC: Appropriate mood and affect; insight and judgment normal. Data Data Orders Orders Ed Discharge Order (02/26/17 05:26) MDM Medical Decision Making Medical Screen Exam Complete: Yes Emergency Medical Condition: Yes Medical Record Reviewed: Yes Differential Diagnosis Gastritis, pancreatitis, appendicitis, acute cholecystitis, ascending cholangitis, AAA, perforated viscous, mesenteric ischemia, hepatitis, cystitis, hydronephrosis/hydroureter/nephroureter calculus, mesenteric adenitis, biliary colic Narrative Course Patient had terrible constipation however with a large fluid enema had a large bowel movement much to her relief. Diet lifestyle modification discussed. Diagnosis Primary Impression: Constipation Qualified Codes: K59.00 - Constipation, unspecified Additional Instructions: You have a choice when it comes to health care, and we are glad that you chose [facility]. Hopefully, we have met your expectations on today's visit. You are welcome to return to [facility] at any time, as we are committed to meeting the health care needs of our community. Med/Other Pt SpecificInfo: No Change to Meds Disposition: 01 DISCHARGE HOME Condition: Jesse Vazquez MD Feb 26, 2017 05:33
== END 2017-02-26 12:55 | disposition home or self-care (01) ==
LOC: NEPE 01:55
DX: K59.00 Constipation, unspecified (principal); I50.9 Heart failure, unspecified; E78.00 Pure hypercholesterolemia, unspecified; I25.10 Atherosclerotic heart disease of native coronary artery without angina pectoris; E07.9 Disorder of thyroid, unspecified; Z79.899 Other long term (current) drug therapy; Z88.2 Allergy status to sulfonamides; Z88.6 Allergy status to analgesic agent; Z88.0 Allergy status to penicillin
CPT/HCPCS: 99284

== ENCOUNTER 2017-10-20 08:27 | Observation (INO) ==
[2017-10-20] MEDS ORDERED: Sod Chloride 0.9% Inj 1,000 ML IV.CONT SCH (08:45)
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
--- NOTE | 2017-10-20 09:20 | XR ---
EXAM DATE: 10/20/2017 9:13 AM EDT AGE/SEX: 82 years / Female INDICATIONS: Shortness of breath and abnormal heart rate. CLINICAL DATA: This is the patient's initial encounter. Patient reports that signs and symptoms have been present for 1 day and indicates a pain score of 0/10. MEDICAL/SURGICAL HISTORY: . Cardiovascular disease. Hypercholesterolemia. . CABG. Appendectomy . Tonsillectomy. Cataract surgery. [place] [facility] [place]. . FINDINGS: Sternal wires from previous bypass are noted. Moderate cardiomegaly with mild interstitial edema. There is no alveolar consolidation, pleural effusion or pneumothorax. The portion of the bony skeleton visualized is unremarkable. CONCLUSION: Cardiomegaly with mild interstitial edema. Previous bypass. Electronically signed by: Rudolph Simms MD 10/20/2017 9:19 AM EDT
[2017-10-20 09:47] LABS: Bacteria,Urine Occasional /hpf; Bilirubin,Urine Negative (Negative); Clarity,Urine Clear (Clear); Color,Urine Yellow (Yellw/Straw); Glucose,Urine (UA) Negative (Negative); Leukocyte Esterase,Urine Trace (Negative); Nitrite,Urine Negative (Negative); Specific Gravity,Urine 1.005 (1.002-1.035); Squamous Epithelial Cell,Urine 3 /hpf (0-5)
[2017-10-20 09:49] LABS: Baso # (Auto) 0.1 th/mm3 (0.0-0.2); Baso % (Auto) 0.8 % (0.0-2.0); Eos # (Auto) 0.3 th/mm3 (0.0-0.4); Eos % (Auto) 4.4 % (0.0-4.0); Hematocrit 43.6 % (35.0-46.0); Hemoglobin 14.7 gm/dL (11.6-15.3); Lymph % (Auto) 30.8 % (9.0-44.0); Mean Corpuscular HGB Conc 33.6 % (32.0-36.0); Mean Corpuscular Hemoglobin 30.5 pg (27.0-34.0); Mean Corpuscular Volume 90.6 fL (80.0-100.0); Mono # (Auto) 0.5 th/mm3 (0.0-0.9); Mono % (Auto) 8.1 % (0.0-8.0); Neut # (Auto) 3.7 th/mm3 (1.8-7.7); Neut % (Auto) 55.9 % (16.0-70.0); Platelet Count 157 th/mm3 (150-450); Red Blood Count 4.81 mil/mm3 (4.00-5.30); Red Cell Distribution Width 16.2 % (11.6-17.2); White Blood Count 6.6 th/mm3 (4.0-11.0)
[2017-10-20 09:53] LABS: Prothrombin Time 10.1 sec (9.8-11.6)
[2017-10-20 09:58] LABS: Alkaline Phosphatase 86 U/L (45-117); Total Protein 8.1 g/dL (6.4-8.2)
[2017-10-20 10:28] LABS: Platelet Morphology Normal (Normal)
[2017-10-20 12:05] LABS: Anion Gap 7 meq/L (5-15); Carbon Dioxide 26.6 meq/L (21.0-32.0); Chloride 110 meq/L (98-107); Potassium 4.4 meq/L (3.5-5.1); Sodium 144 meq/L (136-145)
[2017-10-20 12:06] LABS: Alanine Aminotransferase 22 U/L (10-53); Albumin 3.4 g/dL (3.4-5.0); Aspartate Aminotransferase 31 U/L (15-37); Blood Urea Nitrogen 14 mg/dL (7-18); Calcium 8.3 mg/dL (8.5-10.1); Glomerular Filtration Rate 79 mL/min (>89); Glucose,Random 87 mg/dL (74-106); Lipase 148 U/L (73-393)
--- NOTE | 2017-10-20 13:59 | US ---
EXAM DATE: 10/20/2017 1:49 PM EDT AGE/SEX: 82 years / Female INDICATIONS: Bilateral leg swelling. CLINICAL DATA: This is the patient's initial encounter. Patient reports that signs and symptoms have been present for > 1 year and indicates a pain score of 10/10. MEDICAL/SURGICAL HISTORY: Hypertension. Coronary artery disease. Pneumonia. Urinary tract infec tion. Thyroidectomy. Appendectomy. CABG. Partial hysterectomy. [place]PAR[place]: [facility] [place], 05/05/2016. . TECHNIQUE: Venous ultrasound of both lower extremities was performed from the inguinal ligament to t he proximal calf. Real-time, color Doppler and spectral tracing, compression and augmentation techni ques were used. FINDINGS: Right Leg: Normal compression of the deep venous system from the inguinal region to the proximal zeny f. No echogenic clot is seen. Normal response of the venous system to augmentation and respiration. Left Leg: There is nonocclusive thrombus extending from the common femoral vein to the peroneal vein . Other: None. CONCLUSION: 1. Nonocclusive thrombus left lower extremity as above. Electronically signed by: Momo Marcos MD 10/20/2017 1:58 PM EDT
[2017-10-20] MEDS ORDERED: Haloperidol Inj 5 MG/ML Ampul IM ONE (15:16)
--- NOTE | 2017-10-20 15:57 | CT ---
EXAM DATE: 10/20/2017 3:51 PM EDT AGE/SEX: 82 years / Female INDICATIONS: Altered mental status. CLINICAL DATA: This is the patient's initial encounter. Patient reports that signs and symptoms have been present for 1 day and indicates a pain score of 6/10. MEDICAL/SURGICAL HISTORY: Hypertension. Coronary artery disease. Appendectomy. Thyroidectomy. C ABG. RADIATION DOSE: 37.51 CTDI (mGy) [place] [facility] [place]. . TECHNIQUE: CT of the head without contrast. Using automated exposure control and adjustment of the mA and/or kV according to patient size, radiation dose was kept as low as reasonably achievable to ob tain optimal diagnostic quality images. DICOM format image data is available electronically for revi ew and comparison. FINDINGS: Cerebrum: The CSF spaces are stable in appearance. No evidence of midline shift, mass lesion, hemor rhage or acute infarction. No extraaxial fluid collections are seen. Posterior Fossa: The cerebellum and brainstem are intact. The 4th ventricle is midline. The cerebe llopontine angle is unremarkable. Extracranial: The visualized portion of the orbits is intact. Skull: The calvaria is intact. No evidence of skull fracture. CONCLUSION: 1. Stable evaluation. 2. No evidence of acute infarct, hemorrhage, mass or edema. Electronically signed by: Huey Bond MD 10/20/2017 3:55 PM EDT
--- NOTE | 2017-10-20 16:02 | CT ---
EXAM DATE: 10/20/2017 3:51 PM EDT AGE/SEX: 82 years / Female INDICATIONS: Abdominal pain. CLINICAL DATA: This is the patient's initial encounter. Patient reports that signs and symptoms have been present for 1 day and indicates a pain score of 10/10. MEDICAL/SURGICAL HISTORY: Hypertension. Coronary artery disease. Appendectomy. Thyroidectomy . CABG. ORAL CONTRAST: No oral contrast ingested. RADIATION DOSE: 15.67 CTDI (mGy) COMPAR[place]: [facility] [place] & [place]ELVIS W/O CONTRAST, 05/06/2016. . TECHNIQUE: Multiple contiguous axial images were obtained through the abdomen and pelvis following b olus infusion of 84 ml Omnipaque 350 (iohexol) nonionic water-soluble contrast as a single exam dos e. No oral contrast ingested. Using automated exposure control and adjustment of the mA and/or kV ac cording to patient size, radiation dose was kept as low as reasonably achievable to obtain optimal di agnostic quality images. DICOM format image data is available electronically for review and comparis on. FINDINGS: The lower lungs are clear. There is cardiomegaly with mild interstitial edema. The liver and gallbladder unremarkable. There is a 2. 8 cm lesion in the spleen. There is symmetrical renal function values renal mass. There is no ascites or adenopathy. The pelvis there is a complex 8 cm cystic and solid mass in the right adnexa region. A second complex 8.6 or mass is seen in the left adnexa region. Uterine fibroids are evident. There is no free fluid or free air. Extensive diverticuli are present in the sigmoid colon without diverticulitis. CONCLUSION: 1. Complex masses in both adnexa region stable interval. No free fluid 2. No inflammatory changes in the abdomen. Electronically signed by: Rudolph Simms MD 10/20/2017 4:00 PM EDT
[2017-10-20] MEDS ORDERED: Enoxaparin Inj 80 MG/0.8 ML Syringe SQ ONE (16:24)
--- NOTE | 2017-10-20 17:29 | ECG ---
Date Performed: 10/20/2017 Time Performed: 09:17:53 PTAGE: 82 years EKG: Sinus rhythm NONSPECIFIC ST & T-WAVE ABNORMALITY ABNORMAL RHYTHM ECG PREVIOUS TRACING : 02/08/2017 18.41 Since the previous tracing, no significant change noted DOCTOR: John Osorio Interpretating Date/Time 10/20/2017 17:28:19
[2017-10-20] MEDS ORDERED: Bisacodyl 10 MG Supp RECTAL PRN (17:54)
[2017-10-20] MEDS ORDERED: Lisinopril 5 MG Tablet PO ONE (18:11)
--- NOTE | 2017-10-20 18:13 | P.HPIM ---
History of Present Illness Primary Care Physician: Jessica Odom MD Chief Complaint: Tingling sensation History of Present Illness: 82-year-old white female with a history of coronary artery disease, bedbound status, hypertension who was brought to the emergency room by her son who she lives with complaining of a tingling sensation over the right lower abdomen which has now resolved. She is not the best historian and cannot tell me any other concerns that she has. She denies any symptoms of fevers or chills nor any symptoms of dysuria. Her son states that she is basically been bed and chair bound for the past 8 months and they use a lift to care for her and change her at home. It is unknown why she is unable to ambulate per her son. She was found to have a left lower extremity DVT in the emergency room with no symptoms of complaints of leg pain. Her son has not noticed any symptoms of diarrhea nor any blood in his stools or black stools. Review of Systems All other systems reviewed negative except as [facility] - History History Provided By: Patient, Family Member, Branch Sales And Service Representative / EMT - Medical History Medical History: Medical History (Last Reviewed 10/20/17 @ 18:02 by Lillian Tellez MD) Coronary artery disease H/O thyroidectomy Hypertension Hypotension Pneumonia Urinary tract infection - Surgical History Surgical History: Surgical History (Last Reviewed 10/20/17 @ 18:02 by Lillian Tellez MD) Hx of appendectomy Hx of tonsillectomy S/P CABG x 3 S/P partial hysterectomy - Family History Family History: Family History (Last Updated 10/20/17 @ 18:03 by Lillian Tellez MD) Other No known health problems - Tobacco History Second Hand Smoke Exposure: No Tobacco Use In Past 30 Days: No Smoking Status: Never smoker - Alcohol History How Often Do You Have a Drink Containing Alcohol: Never - Substance Use History Substance History: No History of Abuse - Travel History Recent Travel in the [place] Within the Last 8 Weeks: No Recent Travel Out of the Country Within the Last 8 Weeks: No - Immunization History Tetanus Immunization: Unsure Hx Influenza Vaccine This Season: Unable to Assess Medications and Allergies Active Medications: Active Medications Al Hydroxide/Mg Hydroxide (Milk Of Magnesia Liq) 30 ml PO Q12H PRN PRN Reason: Mild Constipation Bisacodyl (Dulcolax Supp) 10 mg RECTAL DAILY PRN PRN Reason: SEVERE CONSITIPATION Lactic Acid (Lac-Hydrin 12% Lotion) 1 applicatio TOPICAL BID DEONDRE Lactulose (Lactulose Liq) 30 ml PO DAILY PRN PRN Reason: SEVERE CONSITIPATION Rivaroxaban (Xarelto) 15 mg PO BID DEONDRE Sennosides (Senokot) 17.2 mg PO Q12H PRN PRN Reason: Moderate Constipation Sodium Chloride (Ns Flush) 2 ml IV.FLUSH PRN PRN PRN Reason: FLUSH AFTER USING IV ACCESS Last Admin: 10/20/17 09:46 Dose: 2 ml Allergies Allergy/AdvReac Type Severity Reaction Status Date / Time alprazolam Allergy Severe Lethargy Verified 10/20/17 09:02 gatifloxacin Allergy Severe Rash Verified 10/20/17 09:03 loratadine Allergy Severe Headache Verified 10/20/17 09:03 nitrofurantoin Allergy Severe Rash Verified 10/20/17 09:03 penicillin G Allergy Severe Rash Verified 10/20/17 09:03 pentazocine Allergy Severe Nausea/Vomi Verified 10/20/17 09:03 ting pseudoephedrine Allergy Severe Nausea/Vomi Verified 10/20/17 09:03 ting sertraline Allergy Severe Lethargy Verified 10/20/17 09:03 Sulfa (Sulfonamide Allergy Severe Rash Verified 10/20/17 09:03 Antibiotics) ibuprofen Allergy Unknown Nausea/Vomi Verified 10/20/17 09:03 ting BACTRIM Allergy Severe Rash Uncoded 10/20/17 09:02 FISH Allergy Severe Itching Uncoded 10/20/17 09:02 TOLECTIN Allergy Unknown Itching Uncoded 10/20/17 09:02 Exam Vital signs: Vital Signs 10/20/17 08:44 10/20/17 09:30 10/20/17 10:30 Temperature 98.3 F Pulse Rate 91 H 90 86 Respiratory Rate 18 17 15 Blood Pressure 181/86 H 187/75 H 193/84 H Pulse Oximetry 94 L 96 96 10/20/17 11:30 10/20/17 14:06 10/20/17 15:00 Temperature Pulse Rate 72 66 Respiratory Rate 16 18 16 Blood Pressure 185/77 H 157/71 H Pulse Oximetry 98 96 Intake & Output 10/19/17 10/20/17 10/20/17 18:59 06:59 18:59 Weight 81.647 kg Other: Date of Last Bowel Movement 10/19/17 Narrative: GENERAL: Well developed well nourished white female slightly disheveled laying in bed in no acute distress SKIN: Venous stasis dermatitis changes bilateral lower extremity with rough skin over the bilateral dorsum of both feet HEAD: Atraumatic. Normocephalic. EYES: Pupils equal and round. No scleral icterus. No injection or drainage. ENT: No nasal bleeding or discharge. Mucous membranes pink and moist. NECK: Trachea midline. No JVD. CARDIOVASCULAR: Regular rate and rhythm. RESPIRATORY: No accessory muscle use. Clear to auscultation. Breath sounds equal bilaterally. GASTROINTESTINAL: Abdomen soft, non-tender, obese, nondistended. Hepatic and splenic margins not palpable. Normoactive bowel sounds MUSCULOSKELETAL: Extremities without clubbing, cyanosis, 1-2+ edema with right lower extremity more swollen than left, there was no pain on palpation NEUROLOGICAL: Awake and alert to person and time but not to situation. No obvious cranial nerve deficits. Generalized weakness. Normal speech. PSYCHIATRIC: Appropriate mood and affect; Results - Labs CBC & Chem 7: 10/20/17 09:03 10/20/17 11:10 Labs: Short CBC 10/20/17 Range/Units 09:03 WBC 6.6 (4.0-11.0) th/mm3 Hgb 14.7 (11.6-15.3) gm/dL Hct 43.6 (35.0-46.0) % Plt Count 157 (150-450) th/mm3 BMP 10/20/17 11:10 Sodium 144 Potassium 4.4 Chloride 110 H Carbon Dioxide 26.6 BUN 14 Creatinine 0.71 Calcium 8.3 L Cardiac Enzymes 10/20/17 Range/Units 11:10 Troponin I Less than 0.02 L (0.02-0.05) ng/mL Liver Function 10/20/17 Range/Units 11:10 Total Bilirubin 0.6 (0.2-1.0) mg/dL AST 31 (15-37) U/L ALT 22 (10-53) U/L Alkaline Phosphatase 86 (45-117) U/L Albumin 3.4 (3.4-5.0) g/dL Urine 10/20/17 Range/Units 09:03 Urine Color Yellow (Yellw/Straw) Urine Clarity Clear (Clear) Urine pH 6.0 (5.0-8.5) Ur Specific [place] 1.005 (1.002-1.035) Urine Protein Negative (Neg-Trace) mg/dL Urine Glucose (UA) Negative (Negative) mg/dL - Imaging Impressions Chest X-Ray 10/20/17 08:43 CONCLUSION: Cardiomegaly with mild interstitial edema. Previous bypass. Abdomen/Pelvis CT 10/20/17 08:45 CONCLUSION: 1. Complex masses in both adnexa region stable interval. No free fluid 2. No inflammatory changes in the abdomen. Head CT 10/20/17 08:45 CONCLUSION: 1. Stable evaluation. 2. No evidence of acute infarct, hemorrhage, mass or edema. Venous Doppler Study 10/20/17 13:02 CONCLUSION: 1. Nonocclusive thrombus left lower extremity as above. - ECG Prior ECG tracings: available for review Interpretation: Normal sinus rhythm with heart rate 84 Caprini VTE Risk Assessment Caprini VTE Risk Assessment: Moderate/High Risk (score >= 2) Caprini Risk Assessment Model: Point Value = 1 Point Value = 2 Point Value = 3 Point Value = 5 Age 41-60 Minor surgery BMI > 25 kg/m2 Swollen legs Varicose veins or History of unexplained or recurrent spontaneous Oral contraceptives or hormone replacement Sepsis (< 1 month) Serious lung disease, including pneumonia (< 1 month) Abnormal pulmonary function Acute myocardial infarction Congestive heart failure (< 1 month) History of inflammatory bowel disease Medical patient at bed rest Age 61-74 Arthroscopic surgery Major open surgery (> 45 min) Laparoscopic surgery (> 45 min) Malignancy Confined to bed (> 72 hours) Immobilizing plaster cast Central venous access Age >= 75 History of VTE Family history of VTE Factor V Leiden Prothrombin [id number] Lupus anticoagulant Anticardiolipin antibodies Elevated serum homocysteine Heparin-induced thrombocytopenia Other congenital or acquired thrombophilia Stroke (< 1 month) Elective arthroplasty Hip, pelvis, or leg fracture Acute spinal cord injury (< 1 month) Prophylaxis Regimen: Total Risk Factor Score Risk Level Prophylaxis Regimen 0-1 Low Early ambulation 2 Moderate Order ONE of the following: *Sequential Compression Device (SCD) *Heparin 5000 units SQ BID 3-4 Higher Order ONE of the following medications: *Heparin 5000 units SQ TID *Enoxaparin/Lovenox 40 mg SQ daily (WT < 150 kg, CrCl > 30 mL/min) *Enoxaparin/Lovenox 30 mg SQ daily (WT < 150 kg, CrCl > 10-29 mL/min) *Enoxaparin/Lovenox 30 mg SQ BID (WT < 150 kg, CrCl > 30 mL/min) AND/OR *Sequential Compression Device (SCD) 5 or more Highest Order ONE of the following medications: *Heparin 5000 units SQ TID (Preferred with Epidurals) *Enoxaparin/Lovenox 40 mg SQ daily (WT < 150 kg, CrCl > 30 mL/min) *Enoxaparin/Lovenox 30 mg SQ daily (WT < 150 kg, CrCl > 10-29 mL/min) *Enoxaparin/Lovenox 30 mg SQ BID (WT < 150 kg, CrCl > 30 mL/min) AND *Sequential Compression Device (SCD) Assessment and Plan - Plan 1. Left lower extremity deep venous thrombosisstart Xarelto and arrange for home health care upon discharge for medication education. Risks and benefit of medication discussed with both patient and son at bedside today. 2. Chronic debilitation with chronic chair and bedbound statusphysical therapy evaluation. Patient will likely need to be on lifetime anticoagulation for DVT prevention. 3. Abnormal urinalysis with no leukocytosiswe will hold off on antibiotics at this time as there is no clinical signs of infection. 4. Bilateral venous stasis dermatitisLac-Hydrin lotion 5. DVT prophylaxisXarelto 6. Hypertension, chronic essential and uncontrolledstart lisinopril, Vasotec IV as needed.
[2017-10-20] MEDS ORDERED: Melatonin 5 MG Tablet PO PRN (23:28)
[2017-10-20] MEDS: Rivaroxaban 15 MG Tablet PO SCH (23:50)
[2017-10-20] MEDS: Lactic Acid (Ammonium Lactate) 12% Lotion 225 GM Bottle TOPICAL SCH (23:51)
[2017-10-21] MEDS ORDERED: Lisinopril 5 MG Tablet PO SCH (09:00)
[2017-10-21] MEDS: Lactic Acid (Ammonium Lactate) 12% Lotion 225 GM Bottle TOPICAL SCH (09:33)
[2017-10-21] MEDS: Rivaroxaban 15 MG Tablet PO SCH (09:33)
--- NOTE | 2017-10-21 11:44 | P.PN ---
Subjective Interval history: Follow up for LLE DVT, UTI, HTN. The patient reports feeling better today, she wants to go home. LLE pain and swelling has improved. Denies fevers/chills. BP improved after starting lisinopril. Discussed with her son at bedside. The patient is not interested in any rehab placement, she states she is well taken care of at home. She agrees to [facility]. She has no other medical complaints at this time. Physical Exam Vital signs: Vital Signs 10/20/17 14:06 10/20/17 15:00 10/20/17 18:28 Temperature Pulse Rate 66 80 Respiratory Rate 18 16 20 Blood Pressure 157/71 H 135/76 Pulse Oximetry 96 10/20/17 20:31 10/21/17 00:07 10/21/17 04:21 Temperature 97.4 F L 97.4 F L 98.0 F Pulse Rate 80 80 68 Respiratory Rate 18 18 17 Blood Pressure 143/69 H 142/67 H 125/61 Pulse Oximetry 99 99 99 10/21/17 07:46 Temperature 97.8 F Pulse Rate 61 Respiratory Rate 14 Blood Pressure 118/59 L Pulse Oximetry 97 Intake & Output 10/20/17 10/21/17 10/21/17 18:59 06:59 18:59 Output Total 1300 / 1300 Balance -1300 / -1300 Weight 81.647 kg Output: Urine 1300 / 1300 Other: Date of Last Bowel Movement 10/19/17 Narrative: GENERAL: Well-nourished, well-developed pleasant elderly female patient in [facility]. SKIN: Warm and dry. No rash. Erythematous maculopapular rash with satellite lesions under bilateral breasts. HEENT: Normocephalic. Atraumatic. Pupils equal and round. Mucous membranes pink and moist. CARDIOVASCULAR: Regular rate and rhythm. No murmur appreciated. RESPIRATORY: No accessory muscle use. Clear to auscultation. Breath sounds equal bilaterally. GASTROINTESTINAL: Abdomen soft, non-tender, nondistended. Normoactive bowel sounds x4. MUSCULOSKELETAL: No obvious deformities. BLE with chronic venous stasis dermatitis with rough keratotic skin growth. Chronic bilateral nonpitting edema. Left calf > right, however nontender to palpation. NEUROLOGICAL: Awake and alert. No obvious cranial nerve deficits. Generalized weakness of bilateral lower extremities. Normal speech. PSYCHIATRIC: Appropriate mood and affect; insight and judgment normal. Results - Labs CBC & Chem 7: 10/20/17 09:03 10/20/17 11:10 Laboratory Results - last 24 hr 10/20/17 10/20/17 09:03 11:10 Sodium 144 Potassium 4.4 Chloride 110 H Carbon Dioxide 26.6 Anion Gap 7 BUN 14 Creatinine 0.71 Estimated GFR 79 L Random Glucose 87 Calcium 8.3 L AST 31 ALT 22 Albumin 3.4 Lipase 148 Urine Color Yellow Urine Clarity Clear Urine pH 6.0 Ur Specific [place] 1.005 Urine Protein Negative Urine Glucose (UA) Negative Urine Ketones Negative Urine Occult Blood Moderate H Urine Nitrate Negative Urine Bilirubin Negative Urine Urobilinogen Less than 2 Ur Leukocyte Esterase Trace H Urine RBC 3 Urine WBC 8 H Ur Squamous Epith Cells 3 Urine Bacteria Occasional H Micro UA Comment Cath-culture ind Urine Culture Comments Cath-cult indicated Microbiology 10/20/17 09:03 Catheterized Urine Urine Culture - Preliminary gram negative rods 10/20/17 09:03 Blood - Peripheral Aerobic Blood Culture - Preliminary No growth in 1 day 10/20/17 09:03 Blood - Peripheral Anaerobic Blood Culture - Preliminary No growth in 1 day 10/20/17 09:10 Blood - Peripheral Aerobic Blood Culture - Preliminary No growth in 1 day 10/20/17 09:10 Blood - Peripheral Anaerobic Blood Culture - Preliminary No growth in 1 day - Imaging Impressions Abdomen/Pelvis CT 10/20/17 08:45 CONCLUSION: 1. Complex masses in both adnexa region stable interval. No free fluid 2. No inflammatory changes in the abdomen. Head CT 10/20/17 08:45 CONCLUSION: 1. Stable evaluation. 2. No evidence of acute infarct, hemorrhage, mass or edema. Venous Doppler Study 10/20/17 13:02 CONCLUSION: 1. Nonocclusive thrombus left lower extremity as above. Assessment and Plan - Plan 82-year-old female with a history of CAD, HTN not on meds, bedbound status, brought to the ED by her son who she lives with complaining of a tingling sensation over the right lower abdomen which has now resolved. Patient is a poor historian. Further history obtained from patient's son. Left lower extremity DVT: acute, suspect secondary to immobilization, patient mostly bedbound. -Started on Xarelto 15mg bid [id number], then 20mg qd; discussed risks and benefit of medication with patient/son -Arranged for home health care upon discharge for medication education. Chronic debilitation with chronic wheelchair and bedbound status: chronic, no worse than baseline -physical therapy evaluation, patient declining any rehab placement, therefore arranged HHC at discharge -Patient will likely need to be on lifetime anticoagulation for DVT prevention. Essential Hypertension: uncontrolled, patient not on any medications. -started on lisinopril -BP much improved, stable for discharge UTI: preliminary urine culture with gram negative rods. Prior urine cultures with pansensitive E.coli however patient with multiple allergies. -Will treat with ceftin 250mg po bid x3days (reviewed EMR, patient has tolerated cefuroxime in the past) Bilateral venous stasis dermatitis: chronic -Lac-Hydrin lotion Briana Intertrigo: diffuse erythematous maculopapular rash with satellite lesions under bilateral breasts -will treat with nystatin cream (patient declines any powder due to irritation) DVT prophylaxisXarelto Discharge Planning: Discharge patient to home with HHC Condition on discharge: Stable Heart Healthy diet as tolerated Ad Kaitlynn activity Rx written: Ceftin 250 mg bid 3 days, nystatin cream, Xarelto 15 mg po bid [id number] then 20mg qd, lisinopril 5mg daily Follow-up with primary care physician Dr. Odom
--- NOTE | 2017-10-21 11:59 | P.DCO ---
- Physical Therapy Order: Evaluate and treat, Improve ambulation - Home Health Nursing Order: Medical education, Signs/symptoms of disease process, Nursing assessment with vital signs - Home Health Aide Order: To assist in: Bathing and personal care, chief of planning and meal prep - Regional Planner Order: To evaluate: Support services Order: To provide: Long range planning - Case Management Consult Yes - Certification I have seen patient Antonette Soto on 10/21/17. My clinical findings support the need for the requested home health care services because: Limited mobility due to disease progression, Deconditioned with increased weakness, Limited ability to care for self, Infection with risk of complications I certify that my clinical findings support that this patient is homebound because: Unsteady gait/balance, Unsafe to leave home unassisted, Non-ambulatory: confined to bed or chair, Unable to use public transportation
[2017-10-21] MEDS ORDERED: Acetaminophen 325 MG Tablet PO ONE (12:00)
== END 2017-10-21 16:12 | disposition home or self-care (01) ==
LOC: NEPHCDU 08:27 → NEPC 08:27 → NEDA 08:27 → NEPHCDU 18:41
PROVIDERS: ADMIT Internal Medicine; ATTEND Internal Medicine
DX: Z74.01 Bed confinement status; M21.371 Foot drop, right foot; N39.0 Urinary tract infection, site not specified; Z99.3 Dependence on wheelchair; B37.2 Candidiasis of skin and nail; M21.372 Foot drop, left foot; Z95.1 Presence of aortocoronary bypass graft; E89.0 Postprocedural hypothyroidism; I10 Essential (primary) hypertension; I87.2 Venous insufficiency (chronic) (peripheral); I87.8 Other specified disorders of veins; I82.412 Acute embolism and thrombosis of left femoral vein; I25.10 Atherosclerotic heart disease of native coronary artery without angina pectoris; R29.810 Facial weakness